=== PATIENT | male | born 1980 | race Caucasian/White ===

== ENCOUNTER 2020-05-22 18:11 | Inpatient (IN) ==
[2020-05-22] MEDS ORDERED: LORazepam 1 MG/2 ML VIAL IV STA (18:59)
[2020-05-22 19:35] LABS: Basophils # (auto) 0.01 K/uL (0-0.2); Basophils % (auto) 0.1 %; Hemoglobin 13.3 g/dL (14.0-18.0); Immature Granulocytes # (auto) 0.01 K/uL (0.00-0.02); Immature Granulocytes % (auto) 0.1 %; Lymphocytes # (auto) 1.17 K/uL (1.2-3.4); Lymphocytes % (auto) 11.9 %; Mean Corpuscular Hemoglobin 30.9 pg (25-34); Mean Corpuscular Volume 88.4 fL (80-100); Mean Platelet Volume 9.4 fL (7.4-10.4); Monocytes # (auto) 0.83 K/uL (0.11-0.59); Monocytes % (auto) 8.4 %; Neutrophils # (auto) 7.83 K/uL (1.4-6.5); Neutrophils % (auto) 79.5 %; Platelet Count 255 K/uL (130-400); RDW Coefficient of Variation 12.5 % (11.5-14.5); RDW Standard Deviation 39.9 fL (36.4-46.3); White Blood Count 9.85 K/uL (4.8-10.8)
--- NOTE | 2020-05-22 19:40 | Emergency Department Note ---
History of Present Illness General Chief complaint: Altered Mental Status Stated complaint: AMS Time Seen by Provider: 05/22/20 18:41 Source: EMS and police ([employer]rections officers) Mode of arrival: EMS Limitations: altered mental status History of Present Illness Provider complaint: Change in mental status Onset (ago): day(s) Location: head Pain Consistency: + constant Associated symptoms: no fever/chills and no nausea/vomiting This is a 40-year-old male brought in from [facility] for altered mental status for the past 2 days. The patient has a history of bipolar disorder and schizophrenia. He is on olanzapine and sertraline. Over the past 2 days he has been increasingly altered. He is not making sense and not conversant. He has f light of ideas and pressured speech. He is not following commands. There is no known history of trauma. He has had no fevers at the present but EMS noted his temperature was 100.8. History is limited as the patient is altered. Home Medications Home Medications Medication Instructions Recorded Confirmed Type levothyroxine 25 mcg PO DAILY 11/15/19 05/22/20 History olanzapine 5 mg PO HS 11/15/19 05/22/20 History sertraline 100 mg PO DAILY 11/15/19 05/22/20 History diphenhydramine HCl 100 mg PO HS 05/22/20 05/22/20 History sertraline 50 mg PO DAILY 05/22/20 05/22/20 History Allergies Allergy/AdvReac Type Severity Reaction Status Date / Time amoxicillin Allergy Mild Unknown Unverified 05/22/20 19:31 Penicillins Allergy Unknown UNKNOWN Verified 05/22/20 19:31 Past Med/Surg History Medical History Schizophrenia Social History (Updated 05/22/20 @ 19:35 by Gavin Bates MD) Smoking Status: Former smoker Current Living Situation: Other Review of Systems See HPI for pertinent positives & negatives. Unobtainable due to cognitive status Physical Exam Vital Signs Vital Signs - 24 hr 05/22/20 18:20 05/22/20 18:22 05/22/20 18:25 Temperature 37.5 C Temperature Source Oral Pulse Rate 107 H 104 H 104 H Pulse Rate [Apical] Pulse Rate from SpO2 Sensor 106 H 105 H Respiratory Rate 20 20 20 Blood Pressure 123/91 123/91 Blood Pressure Mean 108 101 Pulse Oximetry 96 98 98 Oxygen Delivery Method Room Air Sepsis Recent Fever Within 48 Hours No Sepsis New/Unexplained Change in Mental Status No Sepsis Action Taken by Nursing No Action Required 05/22/20 18:30 05/22/20 19:00 05/22/20 19:30 Temperature Temperature Source Pulse Rate 101 H 100 H 89 Pulse Rate [Apical] Pulse Rate from SpO2 Sensor Respiratory Rate 17 19 16 Blood Pressure Blood Pressure Mean Pulse Oximetry Oxygen Delivery Method Sepsis Recent Fever Within 48 Hours Sepsis New/Unexplained Change in Mental Status Sepsis Action Taken by Nursing 05/22/20 20:00 05/22/20 20:15 05/22/20 20:22 Temperature Temperature Source Pulse Rate 100 H 99 H Pulse Rate [Apical] 90 Pulse Rate from SpO2 Sensor 100 H Respiratory Rate 23 18 20 Blood Pressure 118/75 Blood Pressure Mean 89 Pulse Oximetry 93 97 Oxygen Delivery Method Sepsis Recent Fever Within 48 Hours Sepsis New/Unexplained Change in Mental Status Sepsis Action Taken by Nursing 05/22/20 20:30 05/22/20 21:00 05/22/20 21:30 Temperature Temperature Source Pulse Rate 95 H 84 81 Pulse Rate [Apical] Pulse Rate from SpO2 Sensor 92 H 85 81 Respiratory Rate 17 15 18 Blood Pressure Blood Pressure Mean Pulse Oximetry 96 96 97 Oxygen Delivery Method Sepsis Recent Fever Within 48 Hours Sepsis New/Unexplained Change in Mental Status Sepsis Action Taken by Nursing Constitutional: Vital signs reviewed. Eyes: Pupils are equal round reactive to light. Conjunctiva are injected bilaterally with yellowish discharge in the corners. ENT: Pharynx is clear without erythema or exudate. Mucous membranes are dry. Neck supple without meningeal signs. Respiratory: Clear to auscultation bilaterally. Breath sounds are equal bilater ally. Cardiovascular: Regular rate and rhythm. No rubs or gallops. GI: Soft, nondistended and nontender. Bowel sounds are present. Musculoskeletal: No peripheral edema. No lower extremity tenderness. Integumentary: No cyanosis. or jaundice. Neurological: The patient is awake and alert. Moves all extremities. Hyperreflexic in the knees. Unable to assess upper extremity reflexes. Rigidity in the ankles. Psychiatric: Unable to assess. Pressured speech. Flight of ideas. Course Administered Medications Discontinued Medications Lorazepam (Ativan) 1 mg in 2 mls @ 2 mls/min IV NOW STA Stop: 05/22/20 19:00 Last Admin: 05/22/20 19:47 Dose: 2 mls/min Documented by: [id number] Sodium Chloride (Nss 1000ml) 1,000 mls @ 999 mls/hr IV .Q1H1M ONE Stop: 05/22/20 21:46 Last Admin: 05/22/20 21:05 Dose: 999 mls/hr Documented by: [id number] Critical Care Time Critical Care Time: Yes Total Critical Care Time: 32 I have personally spent approximately 32 minutes of critical care time in the direct management of this patient. This includes bedside care, interpretation of diagnostic studies, and testing, discussion with consultants, patient, and family members, and other required patient management activities. These minutes are in excess of all separately billable procedures. Medical Decision Making Differential Diagnosis Toxidrome, drug overdose, intracranial hemorrhage, brain mass, psychosis, neuroleptic malignant syndrome, serotonin syndrome, metabolic derangement Medical Records Attestation: I reviewed the patient's medical records. I did perform a limited focused review of portions of the patient's old chart on the electronic medical record. The patient has had no recent pertinent visits to this hospital. Home Medications Current Medication List: was personally reviewed by me Laboratory Data Attestation: I reviewed the patient's lab results. Result diagrams: 05/22/20 19:09 05/22/20 19:09 Lab Results 05/22/20 05/22/20 05/22/20 Range/Units 19:09 19:09 19:09 WBC 9.85 (4.8-10.8) K/uL RBC 4.30 L (4.7-6.1) M/uL Hgb 13.3 L (14.0-18.0) g/dL Hct 38.0 L (42-52) % MCV 88.4 (80-100) fL MCH 30.9 (25-34) pg MCHC 35.0 (32-36) g/dL RDW Std Deviation 39.9 (36.4-46.3) fL RDW Coeff of Satish 12.5 (11.5-14.5) % Plt Count 255 (130-400) K/uL MPV 9.4 (7.4-10.4) fL Immature Gran % (Auto) 0.1 % Neut % (Auto) 79.5 % Lymph % (Auto) 11.9 % Rankin % (Auto) 8.4 % Eos % (Auto) 0.0 % Baso % (Auto) 0.1 % Neut # (Auto) 7.83 H (1.4-6.5) K/uL Lymph # (Auto) 1.17 L (1.2-3.4) K/uL Rankin # (Auto) 0.83 H (0.11-0.59) K/uL Eos # (Auto) 0.00 (0-0.5) K/uL Baso # (Auto) 0.01 (0-0.2) K/uL Immature Gran # (Auto) 0.01 (0.00-0.02) K/uL Sodium 126 L (136-145) mmol/L Potassium 4.0 (3.5-5.1) mmol/L Chloride 96 L (98-107) mmol/L Carbon Dioxide 20 L (21-32) mmol/L Anion Gap 10.0 (3-11) BUN 20 H (7-18) mg/dl Creatinine 1.04 (0.6-1.4) mg/dl Est Cr Clr Drug Dosing Not Reportable Est GFR ( Amer) 102.2 Est GFR (Non-Af Amer) 88.1 BUN/Creatinine Ratio 19.0 (10-20) Glucose 87 (70-99) mg/dl POC Glucose (70-99) mg/dl Calcium 10.0 (8.5-10.1) mg/dl Total Bilirubin 0.9 (0.2-1) mg/dl AST 131 H (15-37) U/L ALT 26 (12-78) U/L Alkaline Phosphatase 62 (45-117) U/L Total Creatine Kinase 5206 H (39-308) U/L Total Protein 7.9 (6.4-8.2) gm/dl Albumin 4.3 (3.4-5.0) gm/dl Globulin 3.6 (2.5-4.0) gm/dl Albumin/Globulin Ratio 1.2 (0.9-2) TSH 1.280 (0.300-4.500) uIu/ml Salicylates < 1.7 L (2.8-20) mg/dl Acetaminophen < 2 L (10-30) ug/ml Ethyl Alcohol mg/dL (0-3) mg/dl 05/22/20 05/22/20 Range/Units 19:09 19:15 WBC (4.8-10.8) K/uL RBC (4.7-6.1) M/uL Hgb (14.0-18.0) g/dL Hct (42-52) % MCV (80-100) fL MCH (25-34) pg MCHC (32-36) g/dL RDW Std Deviation (36.4-46.3) fL RDW Coeff of Satish (11.5-14.5) % Plt Count (130-400) K/uL MPV (7.4-10.4) fL Immature Gran % (Auto) % Neut % (Auto) % Lymph % (Auto) % Rankin % (Auto) % Eos % (Auto) % Baso % (Auto) % Neut # (Auto) (1.4-6.5) K/uL Lymph # (Auto) (1.2-3.4) K/uL Rankin # (Auto) (0.11-0.59) K/uL Eos # (Auto) (0-0.5) K/uL Baso # (Auto) (0-0.2) K/uL Immature Gran # (Auto) (0.00-0.02) K/uL Sodium (136-145) mmol/L Potassium (3.5-5.1) mmol/L Chloride (98-107) mmol/L Carbon Dioxide (21-32) mmol/L Anion Gap (3-11) BUN (7-18) mg/dl Creatinine (0.6-1.4) mg/dl Est Cr Clr Drug Dosing Est GFR ( Amer) Est GFR (Non-Af Amer) BUN/Creatinine Ratio (10-20) Glucose (70-99) mg/dl POC Glucose 95 (70-99) mg/dl Calcium (8.5-10.1) mg/dl Total Bilirubin (0.2-1) mg/dl AST (15-37) U/L ALT (12-78) U/L Alkaline Phosphatase (45-117) U/L Total Creatine Kinase (39-308) U/L Total Protein (6.4-8.2) gm/dl Albumin (3.4-5.0) gm/dl Globulin (2.5-4.0) gm/dl Albumin/Globulin Ratio (0.9-2) TSH (0.300-4.500) uIu/ml Salicylates (2.8-20) mg/dl Acetaminophen (10-30) ug/ml Ethyl Alcohol mg/dL < 3.0 (0-3) mg/dl Imaging Data Radiologist's Impression: CT head/brain wo con CLINICAL HISTORY: Acute change in mental status COMPARISON STUDY: No previous studies for comparison. TECHNIQUE: Axial CT of the brain is performed from the vertex to the skull base. IV contrast was not administered for this examination. A dose lowering technique was utilized adhering to the principles of ALARA. CT DOSE: 537.48 mGy.cm FINDINGS: No intra or extra-axial mass lesions are visualized. There is no CT evidence of acute cortical infarction. There is no evidence of midline shift. There is no acute hemorrhage. No calvarial fractures are visualized. There is no evidence of pathologic ventricular dilatation. There is no evidence of acute sinusitis IMPRESSION: No acute intracranial findings ACT 112: Negative or not required by law. Electronically signed by: Joseph Bailey M.D. 05/22/2020 8:22 PM XR chest 1V portable CLINICAL HISTORY: Acute change in mental status. Possible pneumonia. COMPARISON STUDY: 03/13/2015 FINDINGS: The cardiac and mediastinal contours are normal. There is no evidence of focal pulmonary consolidation. There is no evidence of failure. No pleural ef fusions are visualized.[ IMPRESSION: No active disease in the chest. ACT 112: Negative or not required by law. Electronically signed by: Joseph Bailey M.D. 05/22/2020 8:06 PM Dictated: 05/22/202004 Transcribed: 05/22/202004 ECG Data Attestation: I personally reviewed and interpreted this ECG as follows: Indication: + altered mental status Rate (beats per minute): 100 Rhythm: + normal sinus ECG Intervals/blocks: + Normal QRS (QRS duration is 102 ms) and + Normal QT ECG ST segments: no ST elevation ECG Findings: no PVCs Blood Pressure Blood Pressure Findings: Elevated blood pressure Blood Pressure Disposition: further management by hospitalist FLORA Narrative I did evaluate the patient as noted above. I did obtain history from the nurse as well as the correctional officers with the patient. On my exam he is quite altered with flight of ideas and pressured speech. He became hypersexual after seeing female nurses. He does have a history of schizophrenia and bipolar disorder and his altered mental status has occurred over 2 days. He was noted to have a temperature of 100.8 by EMS. The nurse checked his temperature here was 37.5. He has no meningeal signs. I was concerned about the possibility of serotonin syndrome. He does have some hyperreflexia and muscular rigidity but no clonus. He had a questionable Babinski sign but may have just been withdrawing his foot. IV access was established. I did treat him with Ativan [address] I did place an order for continuous cardiac monitoring. The monitor showed normal sinus rhythm at a rate of 99. I did order and personally review the patient's 12-lead EKG as described above. There is no widening of the QRS or evidence of anticholinergic syndrome. I did order and personally reviewed the images of the patient's chest x-ray as described above. There is no evidence of pneumonia. I did order and review the patient's blood work as noted in the electronic medical record. His white blood cell count is not elevated. He is slightly anemic. Electrolytes show hyponatremia with a sodium of 126. He has had mild hyponatremia in the past. His CO2 level is 20. He has a normal creatinine. His CPK is elevated over 5000. I did give him a liter normal saline. I did order a CT of the head. I did review the images myself as well as the radiology report as described above. There is no acute intracranial abnormality. I did go to reassess the patient. He is now sleeping. He is no longer tachycardic. His blood pressure is 123/91. He will be hospitalized for further care and evaluation. I did discuss case with Dr. Hendricks and the case m evangelina. Impression & Plan Altered mental status, Hyponatremia, Elevated CK Discharge Plan Visit Data Chief Complaint: Altered Mental Status Stated Complaint: [facility] ED Provider: Gavin Bates Discharge Problem: Altered mental status, Hyponatremia, Elevated CK Forms Stand Alone Forms: My [facility] Prescriptions Prescriptions: No Action sertraline 100 mg Tablet 100 mg PO DAILY RF: 0 olanzapine 5 mg Tablet 5 mg PO HS RF: 0 levothyroxine 25 mcg Tablet 25 mcg PO DAILY RF: 0 diphenhydramine HCl 50 mg Capsule 100 mg PO HS RF: 0 sertraline 50 mg Tablet 50 mg PO DAILY RF: 0 Referrals Referrals: Jasmyne FREEMAN [Primary Care Provider] - Discharge Problem: Altered mental status Qualifiers: Altered mental status type: delirium Qualified Code(s): R41.0 - Disorientation, unspecified
[2020-05-22 20:02] LABS: Alanine Aminotransferase 26 U/L (12-78); Albumin Level 4.3 gm/dl (3.4-5.0); Aspartate Aminotransferase 131 U/L (15-37); Blood Urea Nitrogen 20 mg/dl (7-18); Carbon Dioxide 20 mmol/L (21-32); Chloride 96 mmol/L (98-107); Est GFR (African American) 102.2; Est GFR (Non-African American) 88.1; Glucose 87 mg/dl (70-99); Sodium 126 mmol/L (136-145)
[2020-05-22 20:06] LABS: Acetaminophen < 2 ug/ml (10-30); Salicylate < 1.7 mg/dl (2.8-20)
--- NOTE | 2020-05-22 20:07 | XRay Report ---
XR chest 1V portable CLINICAL HISTORY: Acute change in mental status. Possible pneumonia. COMPARISON STUDY: 03/13/2015 FINDINGS: The cardiac and mediastinal contours are normal. There is no evidence of focal pulmonary co nsolidation. There is no evidence of failure. No pleural effusions are visualized.[ IMPRESSION: No active disease in the chest. ACT 112: Negative or not required by law. Electronically signed by: Joseph Bailey M.D. 05/22/2020 8:06 PM
[2020-05-22 20:17] LABS: Albumin Globulin Ratio 1.2 (0.9-2); Alkaline Phosphatase 62 U/L (45-117); Bilirubin,Total 0.9 mg/dl (0.2-1); Creatine Kinase 5206 U/L (39-308); Globulin 3.6 gm/dl (2.5-4.0); Total Protein 7.9 gm/dl (6.4-8.2)
--- NOTE | 2020-05-22 20:24 | CT Scan Report ---
CT head/brain wo con CLINICAL HISTORY: Acute change in mental status COMPARISON STUDY: No previous studies for comparison. TECHNIQUE: Axial CT of the brain is performed from the vertex to the skull base. IV contrast was not administered for this examination. A dose lowering technique was utilized adhering to the principles of ALARA. CT DOSE: 537.48 mGy.cm FINDINGS: No intra or extra-axial mass lesions are visualized. There is no CT evidence of acute cortical infarc tion. There is no evidence of midline shift. There is no acute hemorrhage. No calvarial fractures ar e visualized. There is no evidence of pathologic ventricular dilatation. There is no evidence of acute sinusitis IMPRESSION: No acute intracranial findings ACT 112: Negative or not required by law. Electronically signed by: Joseph Bailey M.D. 05/22/2020 8:22 PM
[2020-05-22] MEDS ORDERED: SODIUM CHLORIDE 0.9% 1000ML 1,000 ML IV ONE (20:46)
--- NOTE | 2020-05-22 21:34 | History & Physical Report ---
Date of Service May 22, 2020 Assessment & Plan (1) Altered mental status: 40yo C male with history of Schizophrenia, bipolar disorder presenting with 2 days of AMS, reported incoherence, pressured speech. Elevated temperature recorded by EMS en route to [facility] to 100.8. ER attending reported hyperreflexia. Some concern for serotonin syndrome. No new medications, hyponatremia with Fu=358, CT head unremarkable. TSH WNL. At present, patient is somnolent after receiving Ativan. He is afebrile. No inducible clonus and reflexes are normal. No reported GI complaints. He is on Sertraline 150mg po daily as well as Olanzapine and Benadryl. -Admit to medical floor with telemetry monitoring -Utox and UA pending -Continue Benadryl 100mg po qHS -Ativan as needed -Will hold Sertraline for now. If patient demonstrates elevated temperature, agitation, clonus will consider treatment with cyproheptidine Present on Admission?: Yes (2) Hyponatremia: Rr=901. Patient with chronic hyponatremia, most recent values of Ij=948 in October 2019. He was given 1L NSS in the ER. No seizure activity. Do not feel strongly that patient's sodium level is contributing to his reported AMS -Continue NSS at 150mL/hr x 2 liters -Monitor Na levels Present on Admission?: Yes (3) Elevated CK: BF=[id number]. Renal function preserved. Patient with history of elevated CK in the past (880 in 11/18). -UA pending -NSS as above -Repeat CK in AM Present on Admission?: Yes (4) Schizophrenia: Chronic -Continue Olanzapine 5mg po qHS Present on Admission?: Yes (5) Bipolar disorder: Chronic. ? if AMS is secondary to sid or hypomania. Difficult to assess at this time as patient is somnolent after Ativan -Patient will require continued Psychiatric followup -Holding Sertraline as above -Continue Olanzapine Present on Admission?: Yes (6) Hypothyroid: Chronic. TSH WNL -Continue Levothyroxine 25mcg po daily F/E/N - NSS at 150mL/hr, monitor electrolytes and Na correction, regular diet as tolerated when mental status improves Ppx - Low risk for DVT Code - Full Dispo - Admit to medical floor with telemetry Present on Admission?: Yes History of Present Illness Chief Complaint: AMS Primary Care Provider: [facility] Patient somnolent at time of my encounter after receiving Ativan. History obtained through chart review, discussion with COs and ER attending. Be Tinoco is a 40yo C male with history of Schizophrenia and bipolar disorder presenting from [facility] with AMS x 2 days. Patient has been incoherent and "manic", flight of ideas and pressured speech and no sleep over the last two days. By report, he had an elevated temperature to 100.8 by EMS. On arrival to the ER he was afebrile, tachycardic at 112bpm, blood pressure stable, no respiratory distress. ER attending noted patient to be hyperreflexive. No recent medication changes. ER Course: Ativan 1mg IV, NSS x 1L Allergies Allergy/AdvReac Type Severity Reaction Status Date / Time amoxicillin Allergy Mild Unknown Unverified 05/22/20 19:31 Penicillins Allergy Unknown UNKNOWN Verified 05/22/20 19:31 Home Medications Home Medications Medication Instructions Recorded Confirmed Type levothyroxine 25 mcg PO DAILY 11/15/19 05/22/20 History olanzapine 5 mg PO HS 11/15/19 05/22/20 History sertraline 100 mg PO DAILY 11/15/19 05/22/20 History diphenhydramine HCl 100 mg PO HS 05/22/20 05/22/20 History sertraline 50 mg PO DAILY 05/22/20 05/22/20 History Past Med/Surg History Medical History (Updated 05/22/20 @ 22:24 by Isaura Hendricks DO) Bipolar disorder Hypothyroid Schizophrenia Social History (Updated 05/22/20 @ 19:35 by Gavin Bates MD) Smoking Status: Former smoker Current Living Situation: Other Review of Systems Review of Systems: Unobtainable due to mental health condition Physical Exam Physical Exam: General: patient somnolent, is not answering questions or following commands at this time, non-toxic in appearance Skin: warm, dry, intact, no rashes or lesions HEENT: NC/AT, crusting of eyelids bilaterally, anicteric sclera, external ear normal to inspection and nontender, nares patent, dry mucus membranes, dentition intact, no oropharyngeal lesions, neck supple, trachea midline, no LAD, no thyromegaly, no JVD Heart: +S1/S2, regular, no m/r/g Lungs: equal air entry bilaterally, no rales/rhonchi/wheezes Abd: +BS, soft, NT/ND, no masses/organomegaly/ascites Ext: warm, 2+ pulses in UE/LE bilaterally, no clubbing/cyanosis or edema Neuro: somnolent, withdraws all extremities from pain, no inducible clonus, normal reflexes on my exam Results & Data Results & Data ([facility]) Vital Signs (Past 12 Hours) Vital Signs Temp Pulse Pulse Resp BP Pulse Ox 05/22/20 20:15 90 18 93 05/22/20 18:25 37.5 C 104 H 20 123/91 98 Laboratory Results Lab Results 05/22/20 05/22/20 05/22/20 Range/Units 19:09 19:09 19:09 WBC 9.85 (4.8-10.8) K/uL RBC 4.30 L (4.7-6.1) M/uL Hgb 13.3 L (14.0-18.0) g/dL Hct 38.0 L (42-52) % MCV 88.4 (80-100) fL MCH 30.9 (25-34) pg MCHC 35.0 (32-36) g/dL RDW Std Deviation 39.9 (36.4-46.3) fL RDW Coeff of Satish 12.5 (11.5-14.5) % Plt Count 255 (130-400) K/uL MPV 9.4 (7.4-10.4) fL Immature Gran % (Auto) 0.1 % Neut % (Auto) 79.5 % Lymph % (Auto) 11.9 % [place] % (Auto) 8.4 % Eos % (Auto) 0.0 % Baso % (Auto) 0.1 % Neut # (Auto) 7.83 H (1.4-6.5) K/uL Lymph # (Auto) 1.17 L (1.2-3.4) K/uL [place] # (Auto) 0.83 H (0.11-0.59) K/uL Eos # (Auto) 0.00 (0-0.5) K/uL Baso # (Auto) 0.01 (0-0.2) K/uL Immature Gran # (Auto) 0.01 (0.00-0.02) K/uL Sodium 126 L (136-145) mmol/L Potassium 4.0 (3.5-5.1) mmol/L Chloride 96 L (98-107) mmol/L Carbon Dioxide 20 L (21-32) mmol/L Anion Gap 10.0 (3-11) BUN 20 H (7-18) mg/dl Creatinine 1.04 (0.6-1.4) mg/dl Est Cr Clr Drug Dosing Not Reportable Est GFR ( Amer) 102.2 Est GFR (Non-Af Amer) 88.1 BUN/Creatinine Ratio 19.0 (10-20) Glucose 87 (70-99) mg/dl POC Glucose (70-99) mg/dl Calcium 10.0 (8.5-10.1) mg/dl Total Bilirubin 0.9 (0.2-1) mg/dl AST 131 H (15-37) U/L ALT 26 (12-78) U/L Alkaline Phosphatase 62 (45-117) U/L Total Creatine Kinase 5206 H (39-308) U/L Total Protein 7.9 (6.4-8.2) gm/dl Albumin 4.3 (3.4-5.0) gm/dl Globulin 3.6 (2.5-4.0) gm/dl Albumin/Globulin Ratio 1.2 (0.9-2) TSH 1.280 (0.300-4.500) uIu/ml Salicylates < 1.7 L (2.8-20) mg/dl Acetaminophen < 2 L (10-30) ug/ml Ethyl Alcohol mg/dL (0-3) mg/dl 05/22/20 05/22/20 Range/Units 19:09 19:15 WBC (4.8-10.8) K/uL RBC (4.7-6.1) M/uL Hgb (14.0-18.0) g/dL Hct (42-52) % MCV (80-100) fL MCH (25-34) pg MCHC (32-36) g/dL RDW Std Deviation (36.4-46.3) fL RDW Coeff of Satish (11.5-14.5) % Plt Count (130-400) K/uL MPV (7.4-10.4) fL Immature Gran % (Auto) % Neut % (Auto) % Lymph % (Auto) % [place] % (Auto) % Eos % (Auto) % Baso % (Auto) % Neut # (Auto) (1.4-6.5) K/uL Lymph # (Auto) (1.2-3.4) K/uL [place] # (Auto) (0.11-0.59) K/uL Eos # (Auto) (0-0.5) K/uL Baso # (Auto) (0-0.2) K/uL Immature Gran # (Auto) (0.00-0.02) K/uL Sodium (136-145) mmol/L Potassium (3.5-5.1) mmol/L Chloride (98-107) mmol/L Carbon Dioxide (21-32) mmol/L Anion Gap (3-11) BUN (7-18) mg/dl Creatinine (0.6-1.4) mg/dl Est Cr Clr Drug Dosing Est GFR ( Amer) Est GFR (Non-Af Amer) BUN/Creatinine Ratio (10-20) Glucose (70-99) mg/dl POC Glucose 95 (70-99) mg/dl Calcium (8.5-10.1) mg/dl Total Bilirubin (0.2-1) mg/dl AST (15-37) U/L ALT (12-78) U/L Alkaline Phosphatase (45-117) U/L Total Creatine Kinase (39-308) U/L Total Protein (6.4-8.2) gm/dl Albumin (3.4-5.0) gm/dl Globulin (2.5-4.0) gm/dl Albumin/Globulin Ratio (0.9-2) TSH (0.300-4.500) uIu/ml Salicylates (2.8-20) mg/dl Acetaminophen (10-30) ug/ml Ethyl Alcohol mg/dL < 3.0 (0-3) mg/dl Diagnostic Findings CT head/brain wo con CLINICAL HISTORY: Acute change in mental status COMPARISON STUDY: No previous studies for comparison. TECHNIQUE: Axial CT of the brain is performed from the vertex to the skull base. IV contrast was not administered for this examination. A dose lowering technique was utilized adhering to the principles of ALARA. CT DOSE: 537.48 mGy.cm FINDINGS: No intra or extra-axial mass lesions are visualized. There is no CT evidence of acute cortical infarction. There is no evidence of midline shift. There is no acute hemorrhage. No calvarial fractures are visualized. There is no evidence of pathologic ventricular dilatation. There is no evidence of acute sinusitis IMPRESSION: No acute intracranial findings ACT 112: Negative or not required by law. Electronically signed by: Joseph Bailey M.D. 05/22/2020 8:22 PM Dictated: 05/22/202020 Transcribed: 05/22/202020 XR chest 1V portable CLINICAL HISTORY: Acute change in mental status. Possible pneumonia. COMPARISON STUDY: 03/13/2015 FINDINGS: The cardiac and mediastinal contours are normal. There is no evidence of focal pulmonary consolidation. There is no evidence of failure. No pleural effusions are visualized.[ IMPRESSION: No active disease in the chest. ACT 112: Negative or not required by law. Electronically signed by: Joseph Bailey M.D. 05/22/2020 8:06 PM Dictated: 05/22/202004 Transcribed: 05/22/202004 ECG Additional Comments: EKG wtih NSR at 100bpm, normal axis, RE=535, YVL=580, PTg=704, no acute ischemic changes Code Status & VTE Plan Code Status Full PG Care Time/CCT Total # of Minutes Spent Total Time Spent with Patient: Total time spent is greater than 50% in coordination of care (as documented) at patient's floor/unit and/or counseling patient: Coding Level of Care Code 69394 Initial Inpt Care Lvl 3 Diagnoses Altered mental status R41.0 Altered mental status type: delirium Hyponatremia E87.1 Elevated CK R74.8 Schizophrenia F20.9 Schizophrenia type: unspecified Bipolar disorder F31.9 Active/Remission status: remission status unspecified Hypothyroid E03.9 Hypothyroidism type: unspecified (1) Altered mental status Altered mental status type: delirium Qualified Code(s): R41.0 - Disorientation, unspecified (2) Schizophrenia Schizophrenia type: unspecified Qualified Code(s): F20.9 - Schizophrenia, unspecified (3) Bipolar disorder Active/Remission status: remission status unspecified Qualified Code(s): F31.9 - Bipolar disorder, unspecified (4) Hypothyroid Hypothyroidism type: unspecified Qualified Code(s): E03.9 - Hypothyroidism, unspecified
[2020-05-22] MEDS ORDERED: ACETAMINOPHEN 325 MG TAB PO PRN (22:54)
[2020-05-22] MEDS: SODIUM CHLORIDE 0.9% 1000ML 1,000 ML IV SCH (23:01)
[2020-05-22 23:14] LABS: Magnesium 2.3 mg/dl (1.8-2.4); Phosphorus 3.1 mg/dl (2.5-4.9)
[2020-05-23] MEDS: SODIUM CHLORIDE 0.9% 1000ML 1,000 ML IV SCH ×2 (05:52→17:26)
[2020-05-23] MEDS: LEVOTHYROXINE SODIUM 25 MCG TABLET PO SCH (07:15)
[2020-05-23 07:49] LABS: Basophils # (auto) 0.01 K/uL (0-0.2); Basophils % (auto) 0.2 %; Eosinophils # (auto) 0.01 K/uL (0-0.5); Eosinophils % (auto) 0.2 %; Hematocrit (blood only) 34.5 % (42-52); Hemoglobin 11.7 g/dL (14.0-18.0); Lymphocytes # (auto) 0.75 K/uL (1.2-3.4); Lymphocytes % (auto) 13.2 %; Mean Corpuscular Hgb Conc 33.9 g/dL (32-36); Mean Corpuscular Volume 91.3 fL (80-100); Mean Platelet Volume 9.7 fL (7.4-10.4); Monocytes # (auto) 0.53 K/uL (0.11-0.59); Monocytes % (auto) 9.3 %; Neutrophils # (auto) 4.39 K/uL (1.4-6.5); Neutrophils % (auto) 77.1 %; Platelet Count 236 K/uL (130-400); RDW Coefficient of Variation 12.6 % (11.5-14.5); RDW Standard Deviation 42.2 fL (36.4-46.3); Red Blood Count 3.78 M/uL (4.7-6.1); White Blood Count 5.69 K/uL (4.8-10.8)
[2020-05-23 08:23] LABS: Albumin Level 3.6 gm/dl (3.4-5.0); BUN Creatinine Ratio 15.4 (10-20); Bilirubin Direct 0.2 mg/dl (0-0.2); Calcium 8.7 mg/dl (8.5-10.1); Est GFR (African American) 137.4; Est GFR (Non-African American) 118.5; Potassium 3.9 mmol/L (3.5-5.1)
[2020-05-23 08:30] LABS: Bilirubin,Total 0.8 mg/dl (0.2-1); Total Protein 6.6 gm/dl (6.4-8.2)
--- NOTE | 2020-05-23 08:38 | Electrocardiogram Report ---
Test Reason : Blood Pressure : / mmHG Vent. Rate : 100 BPM Atrial Rate : 100 BPM P-R Int : 154 ms QRS Dur : 102 ms QT Int : 334 ms P-R-T Axes : 062 075 065 degrees QTc Int : 430 ms Poor data quality, interpretation may be adversely affected Normal sinus rhythm Peaked T waves(consider ischemia,hyperkalemia,etc.) Borderline ECG No previous ECGs available Confirmed by Nazario Ramirez ([id number]) on 05/23/2020 8:38:41 AM Referred By: [facility] Confirmed By:Nazario Ramirez
--- NOTE | 2020-05-23 09:08 | Electrocardiogram Report ---
Test Reason : Blood Pressure : / mmHG Vent. Rate : 087 BPM Atrial Rate : 087 BPM P-R Int : 158 ms QRS Dur : 108 ms QT Int : 388 ms P-R-T Axes : 056 048 049 degrees QTc Int : 466 ms Normal sinus rhythm Normal ECG When compared with ECG of 22-MAY-2020 19:45, T waves no longer peaked Otherwise no significant change Confirmed by Nazario Ramirez ([id number]) on 05/23/2020 9:08:06 AM Referred By: [facility] Confirmed By:Nazario Ramirez
[2020-05-23 11:14] LABS: Appearance Urine Clear (Clear); Bilirubin Urine Negative (Negative); Blood Urine Negative (Negative); Color Urine Yellow; Glucose Urine UA Negative (Negative); Ketones Urine 1+ (Negative); Leukocyte Esterase Urine Negative (Negative); Nitrite Urine Negative (Negative); Protein Urine Negative (Negative); Specific Gravity Urine 1.008 (1.000-1.030); Urobilinogen Urine Negative (Negative); pH Urine 5.5 (4.5-7.5)
[2020-05-23 11:32] LABS: Amphetamines+Metham, Urine Neg (Neg); Barbiturates, Urine Neg (Neg); Benzodiazepine, Urine Neg (Neg); Cocaine, Urine Neg (Neg); MDMA (Ecstacy), Urine Neg (Neg); Methadone, Urine Neg (Neg); Opiate, Urine Neg (Neg); Phencyclidine, Urine Neg (Neg)
--- NOTE | 2020-05-23 14:21 | Psychiatric Consultation ---
Date of Consultation May 23, 2020 Impression / Recommendations Impression Dr. Carly Pfeiffer was directly involved in review and discussion of the patient's case and participated in medical decision making regarding treatment recommendations. RECOMMENDATIONS: 05/23 - Psychiatric consultation requested by hospitalist service to evaluate patient for mood and behavioral changes with concern for possible sid versus serotonin syndrome. - Psychiatric records requested from [facility] and summarized above. Pt has a diagnosis of unspecified depressive disorder and insomnia. It is noted that patient has rather significant behavioral issues and malingering traits as evidenced by manipulative behavior in the jail setting. It is uncertain if patient had access to excessive amounts of medications and potential for overdose is unknown. - Patient is reporting he has not been taking olanzapine or sertraline, but is unable to provide a timeline for this refusal. In the absence of consistent use of these medications, or other concerning physical symptoms, it is unlikely that his current presentation is related to a serotonin toxicity. - Patient's behavior is certainly argumentative and uncooperative. Affect is expansive, though it is uncertain if this is baseline behavior. Would suggest continuing home dose of olanzapine 5mg qHS, and offering 5mg prn for agitation or evidence of psychosis. Agree with holding scheduled sertraline, as this can contribute to expansive affect, worsening psychosis, or sid. Will continue to monitor mood/behavior and attempt to gather collateral information regarding patient's presentation. Although further observation is necessary, we also cannot entirely rule out the possibility that patient's behavior is related to malingering or attempts to manipulate individuals with a particular goal. - In order to reduce manipulative behavior and attempt to further encourage acting out, would encourage implementing restrictions in the hospital setting that are consistent with current jail restrictions. Possible restrictions/limitations may include: limiting television, limiting double- portion or drink options, limiting engagement with CO's and hospital staff, etc. - Will continue attempts to gather information. Please reach out to our service with any additional questions or concerns. (1) Altered mental status: Altered mental status type: delirium Qualified Code(s): R41.0 - Disorientation, unspecified (2) Depression: (3) Insomnia: Psych History Identifying Data 40-year-old male inmate from [facility] admitted medically on 05/22/2020 after presenting to the ED from the jail with reports of AMS for 2 days. Psychiatric consultation was requested to evaluate patient due to concern for sid versus serotonin syndrome. Chief Complaint "Who's that? I don't even know her, never met her before." History of Present Illness Be Tinoco is a 40-year-old male inmate at [facility] who presented to the E D with AMS. H&P suggests patient presented at incoherent and "manic" with "flight of ideas and pressured speech and no sleep over the last two days." Psychiatric consultation was requested to evaluate patient for "sid" with concern for possibility of serotonin syndrome. Recent psychiatric records were requested from [facility] in order to get a better understanding of patient's history. Pt is rather uncooperative with assessment. He speaks loudly and is argumentative and irritable for most of the conversation. He is initially preoccupied with "you don't have the 8 years. 8 years of medical school or 8 years of psychology." Pt was reminded that this provider is a PA and role of consultation was shared. According to the patient, he is here because "my ankles and wrist are broken, but no medical provider at your inappropriate hospital cares. They're all off procreating. Pt denies that he has been confused and repeated states "misdiagnosis, misdiagnosis" when asked about the presence of hallucinations. Pt adamantly denies auditory and visual hallucinations, but then states that he sees God and "I believe he has already shot me with a gamma ray." Pt is unwilling to appropriately discuss his psychiatric history. He states he has not been taking sertraline or olanzapine due to "misdiagnosis" and "it affects my liver, I'm only taking medically necessary medicines like Synthroid." Pt refuses to disclose how long he has been refusing these medications and only ignores this provider. At one point, patient was observed to be attempting to hit himself in the face and bite his tongue. He continued to be uncooperative with evaluation. Recommendations outlined in this note were shared with the patient, who continues to state he will not take medications. Past Psychiatric History Previous Psych History: Records from [facility] Reviewed and Summarized: Diagnosis: - Unspecified depressive disorder and insomnia disorder Medications: - Olanzapine 5mg qHS - Sertraline 150mg qAM - Benadryl 100mg qHS Pt seen on 05/22/2020 by [facility] due to abnormal behavior and confusion worsening over "the past few days." Pt had reportedly flooded his cell with soap and was saying nonsensical things. Concern for AMS with fever, unknown if substance ingestion. Pt sent to [facility] ED for further evaluation and management. Psychiatry Progress Note - 05/17/2020 - Pt reported consistency with medications. Denied SI, stating "no, that would be pointless now, I only have 4 monhts until I max out, so I will be ok." [place] thinking reported, but patient denied A/V hallucinations, as well as signs/symptoms of sid/hypomania. Appetite and sleep were reportedly good. Psychiatry Progress Note - 04/26/2020 - Patient described as a "frequent flyer to the POC and the dTU to get away from his cell block." Suicidality was reported "because women do not find him attractive". Behavioral disturbances reported as patient was "throwing urine out of his cell." Staff reportedly taking steps to appropriately manage reported concerns without escalating behavior, as it is reported patient acts out to get sent to the psychiatric treatment units. Psychiatry Progress Note - 04/11/2020 - Ongoing insubordination and behavioral issues. Documentation reports "he has in the past seemed to exaggerate psychiatric sxs for the purpose of getting off the block and coming to the POC or the [facility]U." Pt denied depression or other concerns. Current Psychiatric Diagnosis: Unspecified depressive disorder; insomnia Outpatient Services: Told liaison he has had [facility] in the past, report not verified. Past Medication Trials: ED presentation in 2014 with home medications of paroxetine and fluphenazine. [place] also documented. Allergies Allergy/AdvReac Type Severity Reaction Status Date / Time amoxicillin Allergy Mild Unknown Unverified 05/22/20 19:31 Penicillins Allergy Unknown UNKNOWN Verified 05/22/20 19:31 Home Medications Home Medications Medication Instructions Recorded Confirmed Type levothyroxine 25 mcg PO DAILY 11/15/19 05/22/20 History olanzapine 5 mg PO HS 11/15/19 05/22/20 History sertraline 100 mg PO DAILY 11/15/19 05/22/20 History diphenhydramine HCl 100 mg PO HS 05/22/20 05/22/20 History sertraline 50 mg PO DAILY 05/22/20 05/22/20 History Personal History Living Arrangements: [facility] History of Legal Problems: Current inmate at [facility] Patient History Medical History Bipolar disorder Hypothyroid Schizophrenia Social History Smoking Status: Former smoker Preferred Language: Bengali Current Living Situation: Other Current Living Situation Comment: [facility] Physical Exam Psychiatric: Orientation: alert and oriented x 3; + uncooperative (argumentative, agitated, frequently interrupting) Apperance: appropriately dressed, appropriately groomed and appeared stated age Overweight-appearing male, restrained to bed but appearing restless. Pt is appropriately dressed for setting, wearing hospital gown. Appropriate grooming and hygiene. Eyes appear bloodshot. Eye Contact: + fair eye contact Motor Behavior: + psychomotor agitation (appearing restless, fidgeting, frequently pulling at restraints) Speech: + pressured speech (rapid, and at times nonsensical ) and + loud speech Affect: + labile affect and + irritable affect expansive affect Mood: + depressed mood (mockingly - "I'm depressed...I'm anxious...I'm whatever they say I am.") Thought Process: + tangential thought process; + thought process not clear or coherent and + thought association not intact Thought Content: + preoccupation and + paranoid (though patient denies) Hallucinations: no auditory hallucinations and no visual hallucinations Cognition: language grossly intact; + attention not intact Insight: + poor insight Judgement: + poor judgement Vital Signs (Past 24 Hours): Last Vital Signs Temp 36.8 C 05/23/20 12:00 Pulse 89 05/23/20 12:00 Resp 18 05/23/20 12:00 BP 123/67 05/23/20 12:00 Pulse Ox 96 05/23/20 12:00 Review of Systems Rather uncooperative with interview, but did verbalize the following complaints: Musculoskeletal: reports pain in ankles bilaterally and right wrist Results & Data (PSY) Medications Administered Levothyroxine Sodium (Levothyroxine Sodium 25 Mcg Tablet) 25 mcg PO DAILYBB PREET Stop: 06/22/20 06:29 Last Admin: 05/23/20 07:15 Dose: 25 mcg Documented by: [id number] Coding Level of Care Code 90139 U Intl Hosp Care Lvl 2 Diagnoses Altered mental status R41.0 Altered mental status type: delirium Depression F32.9 Insomnia G47.00
[2020-05-23] MEDS ORDERED: OLANZapine 5 MG TABLET PO PRN (15:35)
[2020-05-23] MEDS ORDERED: HALOPERIDOL LACTATE 5 MG/ML 1 ML VIAL IM PRN (15:36)
--- NOTE | 2020-05-23 17:01 | Hospitalist Progress Note ---
Date of Service May 23, 2020 Assessment & Plan (1) Altered mental status: 40yo C male prisoner with history of bipolar disorder with psychosis presenting with 2-3 days of AMS, reported incoherence, pressured speech. Elevated temperature recorded by EMS en route to [facility] to 100.8. ER attending reported hyperreflexia. Some concern for serotonin syndrome initially No new medications, hyponatremia with Cb=877, CT head unremarkable. TSH WNL. He is on Sertraline 150mg po daily as well as Olanzapine and Benadryl at the residential Alf physician tells me historically this pt typically gets withdrawn and depressed mood, however this is the first time he's ever been agitated and manic UDS, EtOH, ASA, APAP all normal With hyponatremia could be contributing however Na+ now improved and continues to have similar behavioral issues as described prior to admission Low grade temps could be from finger infection as below Also with some rhabdomyolysis here-unclear if intentional or from severe psychomotor agitation prior to admission Seems most consistent with a manic episode--> appreciate Psych consultation -holding sertraline in case of serotonin syndrome although not likely -Continue Benadryl 100mg po qHS -Ativan as needed -continue Olanzapine 5mg po hs and Psych added prn Olanzapine as well as IM Haldol prn -treating finger infection as below -continue IVFs for hyponatemia (2) Hyponatremia: Zt=184. Patient with chronic hyponatremia, most recent values of Nv=862 in October 2019. He was given 1L NSS in the ER. No seizure activity. Do not feel strongly that patient's sodium level is contributing to his reported AMS Na+ improved today to 135 after receiving IVFs through the night -Continue NSS at 150mL/hr for rhabdo -Monitor Na levels in AM (3) Bipolar disorder: Chronic. ? if AMS is secondary to sid or hypomania. Psych consult appreciated -Patient will require continued Psychiatric followup at residential -Holding Sertraline as above -Continue Olanzapine (4) Finger infection: Right middle finger with open wound, erythema, edema of entire finger -unclear how occurred but wound seems at least 1-2 days old Xrays neg for OM -start clindamycin for cellulitis as is allergic to PCN follow -keep elevated wound care for open wound consulted (5) Rhabdomyolysis: HG=[id number]. Renal function preserved. Patient with history of elevated CK in the past (880 in 2/20). CK now trending downward to 3000s with IVFs COuld be from psychomotor agitation vs exercise -UA neg -continue NSS as above -Repeat CK in AM (6) Hypothyroid: Chronic. TSH WNL -Continue Levothyroxine 25mcg po daily (7) Ankle pain, right: no injury, difficult to say if real or not, no abnormal findings on exam or by history checked xray which was negative (8) Wrist pain, right: With mild edema on exam, could be from IV site and also he is constantly pulling his wrists against the handcuffs on that side Xray negative continue APAP prn (9) DVT prophylaxis: Low risk but if stays another night, would add on heparin SQ Dispo-can downgrade to med/surg from tele Admission and Anticipated Discharge Date Admission Date: May 22, 2020 Subjective Pt tangential and speaking very rapidly about multiple things including right ankle pain, right wrist pain, right middle finger wound with pain and swelling of finger. Speaks several times about the "whop down there" while pointing to his lower abdomen and something about the wires and the electromagnetic forces. States he thinks someone came into his cell at the residential and "stomped on my ankle." He asks if the heart monitor will tell him when he's about to ? Tele with NSR rates 80s-90s. Review of Systems Review of Systems: All systems reviewed & are unremarkable except as noted in HPI & below Physical Exam Constitutional: well developed, + behavioral limitations, + disheveled and cooperative; no acute distress Eyes: + anicteric sclerae scant crust on lids and lashes, mild conjunctival injection bilat Neck: trachea midline, no thyromegaly Respiratory: normal respiratory effort, lungs clear to auscultation Cardiovascular: RRR, no murmur, no edema Chest (Breasts): Chest: normal inspection of chest Gastrointestinal (Abdomen): normal bowel sounds, soft, nontender, no hepatosplenomegaly Musculoskeletal: Extremities: no cyanosis and no clubbing Bilat ankles FROM, no TTP, no effusion or ecchymosis Right wrist with + swelling soft tissues, FROM Right middle finger with volar surface 2 x 0.5cm open wound with scab and scant serous drainage with surrounding erythema of entire finger and edema, limited ROM PIP joint, +TTP Skin: no rashes, warm and dry Neurologic: moves all extremities and awake; no focal motor deficits Psychiatric: Orientation: alert and oriented x 3 Eye Contact: good eye contact Motor Behavior: + psychomotor agitation and + akathisia Speech: + pressured speech and + loud speech Affect: + elated affect Thought Process: + tangential thought process Lymphatic: no lymphedema Results & Data Results & Data ([facility]) Vital Signs (Past 12 Hours) Vital Signs Temp Pulse Resp BP Pulse Ox 05/23/20 15:00 37.2 C 89 18 124/71 97 05/23/20 12:00 36.8 C 89 18 123/67 96 05/23/20 07:00 36.8 C 88 18 99/64 L 99 Laboratory Results 05/23/20 05/23/20 05/23/20 Range/Units Unknown 10:50 10:50 WBC (4.8-10.8) K/uL RBC (4.7-6.1) M/uL Hgb (14.0-18.0) g/dL Hct (42-52) % MCV (80-100) fL MCH (25-34) pg MCHC (32-36) g/dL RDW Std Deviation (36.4-46.3) fL RDW Coeff of Satish (11.5-14.5) % Plt Count (130-400) K/uL MPV (7.4-10.4) fL Immature Gran % (Auto) % Neut % (Auto) % Lymph % (Auto) % Bland % (Auto) % Eos % (Auto) % Baso % (Auto) % Neut # (Auto) (1.4-6.5) K/uL Lymph # (Auto) (1.2-3.4) K/uL Bland # (Auto) (0.11-0.59) K/uL Eos # (Auto) (0-0.5) K/uL Baso # (Auto) (0-0.2) K/uL Immature Gran # (Auto) (0.00-0.02) K/uL Sodium (136-145) mmol/L Potassium (3.5-5.1) mmol/L Chloride (98-107) mmol/L Carbon Dioxide (21-32) mmol/L Anion Gap (3-11) BUN (7-18) mg/dl Creatinine (0.6-1.4) mg/dl Est Cr Clr Drug Dosing ml/min Est GFR ( Amer) Est GFR (Non-Af Amer) BUN/Creatinine Ratio (10-20) Glucose (70-99) mg/dl Calcium (8.5-10.1) mg/dl Total Bilirubin (0.2-1) mg/dl Direct Bilirubin (0-0.2) mg/dl AST (15-37) U/L ALT (12-78) U/L Alkaline Phosphatase (45-117) U/L Total Creatine Kinase (39-308) U/L Total Protein (6.4-8.2) gm/dl Albumin (3.4-5.0) gm/dl Urine Color Yellow Urine Appearance Clear (Clear) Urine pH 5.5 (4.5-7.5) Ur Specific [place] 1.008 (1.000-1.030) Urine Protein Negative (Negative) Urine Glucose (UA) Negative (Negative) Urine Ketones 1+ H (Negative) Urine Blood Negative (Negative) Urine Nitrite Negative (Negative) Urine Bilirubin Negative (Negative) Urine Urobilinogen Negative (Negative) Ur Leukocyte Esterase Negative (Negative) Nasal Screen MRSA (PCR) Negative (Negative) Urine Opiates Screen Neg (Neg) Ur Methadone, Qual Neg (Neg) Urine Barbiturates Neg (Neg) Ur Phencyclidine (PCP) Neg (Neg) U Amphetamin/Meth Scrn Neg (Neg) MDMA (Ecstasy) Screen Neg (Neg) U Benzodiazepines Scrn Neg (Neg) Ur Cocaine Metabolite Neg (Neg) U Marijuana (THC) Screen Neg (Neg) 05/23/20 05/23/20 Range/Units 07:02 07:02 WBC 5.69 (4.8-10.8) K/uL RBC 3.78 L (4.7-6.1) M/uL Hgb 11.7 L (14.0-18.0) g/dL Hct 34.5 L (42-52) % MCV 91.3 (80-100) fL MCH 31.0 (25-34) pg MCHC 33.9 (32-36) g/dL RDW Std Deviation 42.2 (36.4-46.3) fL RDW Coeff of Satish 12.6 (11.5-14.5) % Plt Count 236 (130-400) K/uL MPV 9.7 (7.4-10.4) fL Immature Gran % (Auto) 0.0 % Neut % (Auto) 77.1 % Lymph % (Auto) 13.2 % Bland % (Auto) 9.3 % Eos % (Auto) 0.2 % Baso % (Auto) 0.2 % Neut # (Auto) 4.39 (1.4-6.5) K/uL Lymph # (Auto) 0.75 L (1.2-3.4) K/uL Bland # (Auto) 0.53 (0.11-0.59) K/uL Eos # (Auto) 0.01 (0-0.5) K/uL Baso # (Auto) 0.01 (0-0.2) K/uL Immature Gran # (Auto) 0.00 (0.00-0.02) K/uL Sodium 135 L D (136-145) mmol/L Potassium 3.9 (3.5-5.1) mmol/L Chloride 104 (98-107) mmol/L Carbon Dioxide 24 (21-32) mmol/L Anion Gap 7.0 (3-11) BUN 10 D (7-18) mg/dl Creatinine 0.67 D (0.6-1.4) mg/dl Est Cr Clr Drug Dosing 155.0 ml/min Est GFR ( Amer) 137.4 Est GFR (Non-Af Amer) 118.5 BUN/Creatinine Ratio 15.4 (10-20) Glucose 77 (70-99) mg/dl Calcium 8.7 (8.5-10.1) mg/dl Total Bilirubin 0.8 (0.2-1) mg/dl Direct Bilirubin 0.2 (0-0.2) mg/dl AST 105 H (15-37) U/L ALT 22 (12-78) U/L Alkaline Phosphatase 51 (45-117) U/L Total Creatine Kinase 3018 H (39-308) U/L Total Protein 6.6 (6.4-8.2) gm/dl Albumin 3.6 (3.4-5.0) gm/dl Urine Color Urine Appearance (Clear) Urine pH (4.5-7.5) Ur Specific [place] (1.000-1.030) Urine Protein (Negative) Urine Glucose (UA) (Negative) Urine Ketones (Negative) Urine Blood (Negative) Urine Nitrite (Negative) Urine Bilirubin (Negative) Urine Urobilinogen (Negative) Ur Leukocyte Esterase (Negative) Nasal Screen MRSA (PCR) (Negative) Urine Opiates Screen (Neg) Ur Methadone, Qual (Neg) Urine Barbiturates (Neg) Ur Phencyclidine (PCP) (Neg) U Amphetamin/Meth Scrn (Neg) MDMA (Ecstasy) Screen (Neg) U Benzodiazepines Scrn (Neg) Ur Cocaine Metabolite (Neg) U Marijuana (THC) Screen (Neg) ECG Additional Comments: NSR, peaked T waves now resolved PG Care Time/CCT Total # of Minutes Spent Total Time Spent with Patient: Total time spent is greater than 50% in coordination of care (as documented) at patient's floor/unit and/or counseling patient: Coding Level of Care Code 71595 Subseq Hosp Care Lvl 3 Diagnoses Altered mental status R41.0 Altered mental status type: delirium Hyponatremia E87.1 Bipolar disorder F31.9 Active/Remission status: remission status unspecified Finger infection L08.9 Rhabdomyolysis M62.82 Hypothyroid E03.9 Hypothyroidism type: unspecified Ankle pain, right M25.571 Wrist pain, right M25.531 DVT prophylaxis Z29.9 (1) Bipolar disorder Active/Remission status: remission status unspecified Qualified Code(s): F31.9 - Bipolar disorder, unspecified (2) Hypothyroid Hypothyroidism type: unspecified Qualified Code(s): E03.9 - Hypothyroidism, unspecified (3) Altered mental status Altered mental status type: delirium Qualified Code(s): R41.0 - Disorientation, unspecified
[2020-05-23] MEDS: CLINDAMYCIN 600 MG in DEXTROSE 5% 50 ML IV SCH (17:27)
--- NOTE | 2020-05-23 17:42 | XRay Report ---
RIGHT ANKLE 3 VIEWS HISTORY: right ankle pain COMPARISON: None. FINDINGS: There is no fracture or dislocation. Soft tissues are unremarkable. No radiopaque foreign b odies. IMPRESSION: No fractures. ACT 112: Negative or not required by law. Electronically signed by: Bay Nguyen M.D. 05/23/2020 5:41 PM
--- NOTE | 2020-05-23 17:44 | XRay Report ---
XR hand RT min 3V routine, XR wrist RT min 3V routine CLINICAL HISTORY: middle finger swelling,erythema,wound. Right wrist pain. COMPARISON STUDY: None. FINDINGS: Soft tissue swelling within the hand and wrist. No fracture or dislocation. No destructive changes identified. An intravenous line is noted within the dorsum of the hand. Otherwise, no radiopa que foreign bodies. IMPRESSION: Soft tissue swelling within the right hand/wrist. No underlying bony abnormality. ACT 112: Negative or not required by law. Electronically signed by: Bay Nguyen M.D. 05/23/2020 5:43 PM
[2020-05-23] MEDS ORDERED: OLANZapine 5 MG TABLET PO SCH (21:00)
[2020-05-24] MEDS: CLINDAMYCIN 600 MG in DEXTROSE 5% 50 ML IV SCH ×2 (00:02→08:50)
[2020-05-24] MEDS: SODIUM CHLORIDE 0.9% 1000ML 1,000 ML IV SCH ×3 (00:02→13:27)
[2020-05-24] MEDS: LEVOTHYROXINE SODIUM 25 MCG TABLET PO SCH (06:16)
[2020-05-24 07:11] LABS: Hematocrit (blood only) 36.7 % (42-52); Hemoglobin 12.4 g/dL (14.0-18.0); Lymphocytes % (auto) 20.5 %; Mean Corpuscular Hemoglobin 30.8 pg (25-34); Mean Corpuscular Hgb Conc 33.8 g/dL (32-36); Mean Corpuscular Volume 91.1 fL (80-100); Mean Platelet Volume 9.7 fL (7.4-10.4); Monocytes # (auto) 0.27 K/uL (0.11-0.59); Monocytes % (auto) 7.9 %; Neutrophils # (auto) 2.44 K/uL (1.4-6.5); Neutrophils % (auto) 71.6 %; Platelet Count 235 K/uL (130-400); RDW Coefficient of Variation 12.7 % (11.5-14.5); RDW Standard Deviation 42.4 fL (36.4-46.3); Red Blood Count 4.03 M/uL (4.7-6.1); White Blood Count 3.41 K/uL (4.8-10.8)
[2020-05-24 07:55] LABS: BUN Creatinine Ratio 7.8 (10-20); Bilirubin Direct 0.1 mg/dl (0-0.2); Calcium 8.5 mg/dl (8.5-10.1); Creatinine Clr Calc Pharmacy 167.5 ml/min; Est GFR (African American) 141.8; Est GFR (Non-African American) 122.4; Potassium 3.2 mmol/L (3.5-5.1)
[2020-05-24 08:04] LABS: Albumin Level 3.6 gm/dl (3.4-5.0); Bilirubin,Total 0.4 mg/dl (0.2-1)
[2020-05-24] MEDS ORDERED: POTASSIUM CHLORIDE 20 MEQ TABCR PO STA (09:39)
[2020-05-24] MEDS ORDERED: MICONAZOLE NITRATE POWDER 43 GM EXT SCH (10:00)
[2020-05-24] MEDS ORDERED: MUPIROCIN 2% OINT 22 GM TUBE EXT SCH (10:00)
--- NOTE | 2020-05-24 11:18 | Discharge Summary ---
Date of Service May 24, 2020 Admission HPI Per Admitting Provider Patient somnolent at time of my encounter after receiving Ativan. History obtained through chart review, discussion with COs and ER attending. Be Tinoco is a 40yo C male with history of Schizophrenia and bipolar disorder presenting from [facility] with AMS x 2 days. Patient has been incoherent and "manic", flight of ideas and pressured speech and no sleep over the last two days. By report, he had an elevated temperature to 100.8 by EMS. On arrival to the ER he was afebrile, tachycardic at 112bpm, blood pressure stable, no respiratory distress. ER attending noted patient to be hyperreflexive. No recent medication changes. ER Course: Ativan 1mg IV, NSS x 1L Principal Diagnosis Acute psychosis, sid, right middle finger cellulitis, Rhabdomyolysis Discharge Exam Constitutional well developed, + behavioral limitations, + disheveled and cooperative; no acute distress Eyes + anicteric sclerae no further conjunctival injection Neck trachea midline, no thyromegaly Respiratory normal respiratory effort, lungs clear to auscultation Cardiovascular RRR, no murmur, no edema Chest (Breasts) Chest: normal inspection of chest Musculoskeletal Extremities: no cyanosis and no clubbing right wrist less edema today, no erythema, FROM wrist Rt middle finger less edema and less erythema, wound dry scab, able to flex PIP and DIP and MCP joints fully Skin + rash (seborrhea of scalp, around eyes, nose) Neurologic moves all extremities and awake; no focal motor deficits Psychiatric Orientation: alert and oriented x 3 Eye Contact: good eye contact Affect: + elated affect (but improved today) Thought Process: clear/coherent thought process (improved today, not tangential) Lymphatic no lymphedema Discharge Data Allergies Allergy/AdvReac Type Severity Reaction Status Date / Time amoxicillin Allergy Mild Unknown Unverified 05/22/20 19:31 Penicillins Allergy Unknown UNKNOWN Verified 05/22/20 19:31 Consultations 05/23/20 08:49 Consult Psychiatry Routine Ordered Studies 05/22/20 18:59 CT head/brain wo con Stat Xray right wrist and hand Xray right ankle Hospital Course (1) Altered mental status: 40yo C male prisoner with history of bipolar disorder with psychosis presenting with 2-3 days of AMS, reported incoherence, pressured speech. Elevated temperature recorded by EMS en route to [facility] to 100.8. ER attending reported hyperreflexia. Some concern for serotonin syndrome initially No new medications, hyponatremia with Bh=651, CT head unremarkable. TSH WNL. He is on Sertraline 150mg po daily as well as Olanzapine and Benadryl at the shelter [facility] physician tells me historically this pt typically gets withdrawn and depressed mood, however this is the first time he's ever been agitated and manic UDS, EtOH, ASA, APAP all normal With hyponatremia could be contributing however Na+ now improved and continued to have similar behavioral issues as described prior to admission Low grade temps could be from finger infection as below and now resolved Also with some rhabdomyolysis here-unclear if intentional or from severe psychomotor agitation prior to admission Seems most consistent with a manic episode--> appreciate Psych consultation Now much improved after extra Zyprexa and Haldol 10mg IM x 1 on evenin gof 05/23. He slept all night and fels much better. Still mild psychomotor agitation but coherent and conversive, no longer tangential, and apologized for "wasting your time" to me on day of discharge. -holding sertraline in case of serotonin syndrome although not likely -Continue Benadryl 100mg po qHS -continue Olanzapine 5mg po hs and Psych added prn Olanzapine as well as IM Haldol prn -treating finger infection as below -continue IVFs for rhabdo at shelter as below -f/u with Psych at shelter (2) Hyponatremia: To=783. Patient with chronic hyponatremia, most recent values of Yn=641 in October 2019. He was given 1L NSS in the ER. No seizure activity. Do not feel strongly that patient's sodium level is contributing to his reported AMS Na+ improved today to 138 after receiving IVFs x 2 days -Continue NSS atprison x 2 more days for rhabdo -Monitor BMP at shelter in 2 days (3) Bipolar disorder: Chronic. ? if AMS is secondary to sid or hypomania. Psych consult appreciated -Patient will require continued Psychiatric followup at shelter -Holding Sertraline as above -Continue Olanzapine (4) Finger infection: Right middle finger with open wound, erythema, edema of entire finger--> now improved after starting clindamycin -unclear how occurred but wound seems at least 1-2 days old Xrays neg for OM -continue 10 day course of po clindamycin for cellulitis as is allergic to PCN follow -keep elevated wound care for open wound consulted-start bactriban bid, no dressing needed Blood cultures with 1/2 sets with GPC in clusters, likely contaminate--> will f/u after discharge and contact shelter if is something significant (5) Rhabdomyolysis: SM=[id number] on admission, now down to 2300. Renal function preserved. Patient with history of elevated CK in the past (880 in 11/18). CK now trending downward with IVFs COuld be from psychomotor agitation vs exercise -UA neg -continue NSS as above at shelter x 2 more days -Repeat CK and CMP in 2 days AST also elevated secondary to rhabdo at 130 on day of dc (6) Hypothyroid: Chronic. TSH WNL -Continue Levothyroxine 25mcg po daily (7) Ankle pain, right: no injury, difficult to say if real or not, no abnormal findings on exam or by history checked xray which was negative (8) Wrist pain, right: With mild edema on exam, could be from IV site and also he is constantly pulling his wrists against the handcuffs on that side Xray negative continue APAP prn (9) DVT prophylaxis: Low risk Dispo-stable for dc to shelter discussed his care with Dr. Martinez at [facility] prior to discharge and he accepts him back Total Time Total Time Spent Total Time Spent (In Minutes): >30 min Total Time Includes: Examination of the Patient, Discharge Planning, Medication Reconciliation and Communication With Other Providers Discharge Plan Discharge Items Patient Disposition: [facility] Reason For Visit: AMS Discharge Diagnosis: Depression with psychosis,possible sid, Right middle finger cellulitis, Rhabdomyolysis Condition on Discharge: Fair Activity: Resume your previous activity Non-emergency contact: Primary Care Provider and Psychiatrist Call non-emergency contact if: you have any medication questions and your symptoms worsen Follow-up/Referrals: Jasmyne FREEMAN [Primary Care Provider] - Diet: Regular Addtl Attending Provider Instructions: Continue IVFs with normal saline x 2 more days for rhabdomyolysis, follow CMP, CK at shelter in 2 days. Continue clindamycin 600mg po tid x 9 more days for finger infection which appears to be improving. Follow up with Psychiatry for depression with psychosis, suspected sid. Pending Studies at Discharge: Yes Studies:: Blood culture--> 1/2 bottles with gram positive cocci in clusters, likely contaminant, final ID pending Stand-Alone Forms: My [facility] Skilled Items Patient informed of condition?: Yes Discharge Level of Care: Other Communicable Disease: No Discharge Prognosis: Improving Lines: None Urinary Catheter: No Medications and DC Order Prescriptions: New olanzapine 5 mg Tablet 5 mg PO Q4H PRN (Reason: agitation) Qty: 30 RF: 0 Desenex 2 % Powder 1 applic EXT BID Qty: 43 RF: 0 mupirocin 2 % Ointment 1 applic EXT BID Qty: 15 RF: 0 clindamycin HCl 300 mg capsule 600 mg PO TID 9 Days Qty: 54 RF: 0 Continued olanzapine 5 mg Tablet 5 mg PO HS RF: 0 levothyroxine 25 mcg Tablet 25 mcg PO DAILY RF: 0 diphenhydramine HCl 50 mg Capsule 100 mg PO HS RF: 0 Discontinued sertraline 100 mg Tablet 100 mg PO DAILY RF: 0 sertraline 50 mg Tablet 50 mg PO DAILY RF: 0 Discharge Orders: Discharge Order (Routine); Ordered 05/24/20 Ordered By: Francine Paul Admission Data Admit Date/Time: 05/22/20 21:29 Attending Provider: Francine Paul Admit Provider: Isaura Hendricks Primary Care Provider: Jasmyne FREEMAN Other Providers: Carly Pfeiffer Coding Level of Care Code D/C Day Management >30 mins Diagnoses Altered mental status R41.0 Altered mental status type: delirium Hyponatremia E87.1 Bipolar disorder F31.9 Active/Remission status: remission status unspecified Finger infection L08.9 Rhabdomyolysis M62.82 Hypothyroid E03.9 Hypothyroidism type: unspecified Ankle pain, right M25.571 Wrist pain, right M25.531 DVT prophylaxis Z29.9
== END 2020-05-24 13:43 | DRG 885 ==
LOC: ED 18:11 → SUATTDRO 21:29 → 2N 21:29

== ENCOUNTER 2020-06-01 16:23 | Inpatient (IN) ==
[2020-06-01] MEDS ORDERED: SODIUM CHLORIDE 0.9% 1000ML 1,000 ML IV SCH (16:30)
[2020-06-01] MEDS ORDERED: DIPHTHERIA/TETANUS/PERTUSSIS 0.5 ML SYR/VIAL IM ONE ×2 (16:38→19:09)
--- NOTE | 2020-06-01 16:38 | Emergency Department Note ---
Impression & Plan Acute hyponatremia, Seizure, Hypophosphatemia, Hypomagnesemia ED Provider Note NAME: SYL [id number] YAKELIN AGE: 40 SEX: M : 1980 ARRIVES VIA: Ambulance INFORMANT: Patient, ED PROVIDER(S): Luis Pierce MD Chief Complaint: Seizure HPI: Patient does present from [facility]. Reportedly unwitnessed but was found after a possible syncopal event. The patient does not have any known history of seizure and denies any bowel or bladder incontinence or tongue biting. Patient does have a known history of bipolar disorder. Patient does have some intermittent confusion. CEOs were not able to comment on the patient's baseline. The patient does complain of some mild pain. The patient does have a bandage over the right forehead. Patient is unsure as to whether or not his tetanus is up-to-date. The patient denies blood thinning medications. Patient denies fevers or chills. Per the [place] 0 no active cases of coronavirus at [facility]. ROS: See HPI for pertinent positives and negatives. A total of 10 systems were reviewed and otherwise negative. Past medical history: See below Surgical history: See below Social history: See below Physical Exam: GENERAL: NAD, non-toxic. C-collar in place, wound noted to the right forehead. Hemostatic. EYE EXAM: Normal conjunctiva. PERRL, no anisocoria and EOM's grossly intact w/o pain. Head: 3 cm laceration just lateral to the right eyebrow, hemostatic. NECK: Supple, no nuchal rigidity, no adenopathy, non-tender. No signs of meningismus. C-collar broken down trachea midline no midline C-spine TTP or tenderness palpation LUNGS: Clear to auscultation. Normal chest wall mechanics. HEART: NSR, no MRG. ABDOMEN: Abdomen soft, non-tender, normo-active bowel sounds, no masses, no rebound or guarding. BACK: No CVA TTP. SKIN: No rashes and no bruising. UPPER EXTREMITIES: Upper extremities are grossly normal. LOWER EXTREMITIES: Grossly normal, no edema. NEURO EXAM: Easily arousable, follows basic commands oriented to person and date of . Moves all 4 extremities and denies sensory deficits. Differential diagnoses: Epilepsy, infection, hypoglycemia, electrolyte abnormalities, cardiac sources, intracerebral event, trauma, toxicologic, neurologic, syncope, as well as other pathologies. Course: Patient was seen and evaluated the bedside. Full history physical exam was performed. EKG: Indication: Seizure/syncope Normal sinus rhythm, rate of 86, normal intervals, normal axis, no ST changes or T WI. No significant change from May 23, 2020 Imaging Studies: Radiology results as stated below per my review in the radiologist's interpretation: CT head/brain wo con CLINICAL HISTORY: seizure; prisoner COMPARISON STUDY: 05/22/2020 TECHNIQUE: Axial CT of the brain is performed from the vertex to the skull base. IV contrast was not administered for this examination. A dose lowering technique was utilized adhering to the principles of ALARA. CT DOSE: FINDINGS: No intra or extra-axial mass lesions are visualized. There is no CT evidence of acute cortical infarction. There is no evidence of midline shift. There is no acute hemorrhage. No calvarial fractures are visualized. There is no evidence of pathologic ventricular dilatation. There is no evidence of acute sinusitis IMPRESSION: No acute intracranial findings ACT 112: Negative or not required by law. Electronically signed by: Joseph Bailey M.D. 06/01/2020 5:50 PM Dictated: 06/01/201749 Transcribed: 06/01/201749 CT OF THE CERVICAL SPINE CLINICAL HISTORY: Syncope with neck trauma. Neck pain. COMPARISON STUDY: No previous studies for comparison. CT DOSE: 1065.52 mGy.cm TECHNIQUE: CT scan of the cervical spine was performed from the skull base to the thoracic inlet. Images are reviewed in the axial, sagittal, and coronal planes. IV contrast was not administered for this examination. A dose lowering technique was utilized adhering to the principles of ALARA. FINDINGS: The visualized portions of the lung apices reveal no evidence of pneumothorax. The prevertebral soft tissues are normal. No fractures or subluxations are visualized. There are mild degenerative changes IMPRESSION: No evidence of acute fracture or traumatic subluxation. ACT 112: Negative or not required by law. Electronically signed by: Joseph Bailey M.D. 06/01/2020 5:56 PM Dictated: 06/01/201753 Transcribed: 06/01/201753 Cardiac monitoring: An order was placed for continuous cardiac monitoring. The monitor shows a rate of 87 with sinus rhythm. Procedures: Laceration repair performed by Dr. Pierce Location: Lateral to the right eyebrow Total length: 3 cm Complexity: Simple Verbal consent was obtained after the risks and benefits were explained, including but not limited to bleeding, scarring, infection, pain, and bone/j oint/nerve damage. At this time, the risks of the procedure are less than the risks of NOT performing the procedure. A time out was taken and the correct patient and site identified. The skin was prepped with chlorhexidine. The wound edges were approximated using Dermabond and Steri-Strip. Hemostasis and excellent approximation was achieved. No complications and the patient tolerated the procedure well. MDM: Patient was seen due to concern for possible seizure and syncope. The patient did a bladder complete along with a CT of the head and cervical spine. Patient CT of the head and cervical spine were negative. The patient does have a significantly low sodium and hyponatremia. The patient was ordered 3% hypertonic. There was concern about the patient having some hypoxic events. After seeing the patient the patient does seem to fall asleep but then is easily arousable. The patient does desat into the 80s. Given some sonorous breathing I believe the patient may have some evidence of obstructive sleep apnea. VBG was ordered and the patient was placed on BiPAP. I did speak with the on-call preparer making department Dr. Webber to did have the resident see the patient at the bedside. I also did speak with the on-call hospitalist Dr. Smith. The patient was subsequently mated to the intensive care unit. Patient did have multiple different electrolyte abnormalities. The patient did have a second IV line placed and the patient was ordered treatment of additional electrolytes. VBG does not show any CO2 retention. Patient did have a low serum awesome this. Critical Care: I have personally spent 95 minutes of critical care time in direct management of this patient. This includes bedside care, interpretation of diagnostic studies, and testing, discussion with consultants, patient, and family members, and other require inpatient management activities. This 95 minutes is in excess of all separately billable procedures. Past Med/Surg History Medical History (Updated 06/01/20 @ 19:19 by Shiraz Smith MD) Bipolar disorder Hyponatremia Hypothyroid Suicidal ideation Suicide gesture Social History Smoking Status: Former smoker Tobacco Type: Cigarettes Hx Alcohol Use: No Hx Substance Use: No Preferred Language: [place] [employer] Required: No Beliefs That Will Affect Care: None Current Living Situation: Other Current Living Situation Comment: [facility] facility Other Information That Helps Us Care for You: No Feels Safe at Home: Yes Allergies Allergies Allergy/AdvReac Type Severity Reaction Status Date / Time amoxicillin Allergy Mild Unknown Unverified 05/22/20 19:31 Penicillins Allergy Unknown UNKNOWN Verified 05/22/20 19:31 Home Meds Home Medications Medication Instructions Recorded Confirmed levothyroxine 25 mcg PO DAILY 11/15/19 05/22/20 olanzapine 5 mg PO HS 11/15/19 05/22/20 diphenhydramine HCl 100 mg PO HS 05/22/20 05/22/20 Previous Rx's Medication Instructions Recorded clindamycin HCl 600 mg PO TID 9 Days #54 cap 05/24/20 miconazole nitrate [Desenex] 1 applic EXT BID #43 g 05/24/20 mupirocin 1 applic EXT BID #15 g 05/24/20 olanzapine 5 mg PO Q4H PRN #30 tab 05/24/20 Results & Data (ED) Vital Signs Vital Signs - 24 hr 06/01/20 16:23 06/01/20 16:34 06/01/20 16:38 Temperature 36.6 C Temperature Source Oral Pulse Rate 87 90 84 Pulse Rate from SpO2 Sensor 88 84 Pulse Rhythm Regular Pulse Strength Normal Respiratory Rate 18 18 20 Respiratory Effort / Characteristics Non-Labored Spontaneous Respiratory Depth Normal Respiratory Pattern Regular Blood Pressure 138/87 138/87 Blood Pressure Mean 104 92 Blood Pressure Position Lying Pulse Oximetry 100 100 100 Oxygen Delivery Method Room Air Sepsis Recent Fever Within 48 Hours No Sepsis New/Unexplained Change in Mental Status No Sepsis Action Taken by Nursing No Action Required 06/01/20 17:00 06/01/20 17:30 06/01/20 17:54 Temperature Temperature Source Pulse Rate 85 78 88 Pulse Rate from SpO2 Sensor 88 78 89 Pulse Rhythm Pulse Strength Respiratory Rate 20 20 20 Respiratory Effort / Characteristics Respiratory Depth Respiratory Pattern Blood Pressure 138/78 Blood Pressure Mean 84 Blood Pressure Position Pulse Oximetry 100 82 L 100 Oxygen Delivery Method Room Air Sepsis Recent Fever Within 48 Hours Sepsis New/Unexplained Change in Mental Status Sepsis Action Taken by Nursing 06/01/20 17:55 06/01/20 18:00 06/01/20 18:01 Temperature Temperature Source Pulse Rate 92 H 90 83 Pulse Rate from SpO2 Sensor 94 H 89 84 Pulse Rhythm Pulse Strength Respiratory Rate 33 H 34 H 34 H Respiratory Effort / Characteristics Respiratory Depth Respiratory Pattern Blood Pressure 134/79 128/84 Blood Pressure Mean 92 92 Blood Pressure Position Pulse Oximetry 100 100 100 Oxygen Delivery Method Sepsis Recent Fever Within 48 Hours Sepsis New/Unexplained Change in Mental Status Sepsis Action Taken by Nursing 06/01/20 18:15 06/01/20 18:30 06/01/20 18:31 Temperature Temperature Source Pulse Rate 96 H 84 86 Pulse Rate from SpO2 Sensor 97 H 86 86 Pulse Rhythm Pulse Strength Respiratory Rate 28 H 30 H 24 Respiratory Effort / Characteristics Respiratory Depth Respiratory Pattern Blood Pressure 127/81 129/81 Blood Pressure Mean 84 88 Blood Pressure Position Pulse Oximetry 100 100 100 Oxygen Delivery Method Sepsis Recent Fever Within 48 Hours Sepsis New/Unexplained Change in Mental Status Sepsis Action Taken by [facility] Medications Current Medication List: was personally reviewed by me Laboratory Data Attestation: I reviewed the patient's lab results. Result diagrams: 06/01/20 16:44 06/01/20 19:53 Lab Results 06/01/20 06/01/20 06/01/20 Range/Units 16:44 16:44 16:44 WBC 5.75 (4.8-10.8) K/uL RBC 3.94 L (4.7-6.1) M/uL Hgb 12.2 L (14.0-18.0) g/dL Hct 33.4 L (42-52) % MCV 84.8 (80-100) fL MCH 31.0 (25-34) pg MCHC 36.5 H (32-36) g/dL RDW Std Deviation 36.5 (36.4-46.3) fL RDW Coeff of Satish 11.8 (11.5-14.5) % Plt Count 284 (130-400) K/uL MPV 9.5 (7.4-10.4) fL Immature Gran % (Auto) 0.5 % Neut % (Auto) 81.1 % Lymph % (Auto) 10.4 % [place] % (Auto) 7.8 % Eos % (Auto) 0.2 % Baso % (Auto) 0.0 % Neut # (Auto) 4.66 (1.4-6.5) K/uL Lymph # (Auto) 0.60 L (1.2-3.4) K/uL [place] # (Auto) 0.45 (0.11-0.59) K/uL Eos # (Auto) 0.01 (0-0.5) K/uL Baso # (Auto) 0.00 (0-0.2) K/uL Immature Gran # (Auto) 0.03 H (0.00-0.02) K/uL Sodium 114 L* (136-145) mmol/L Potassium 4.1 (3.5-5.1) mmol/L Chloride 81 L (98-107) mmol/L Carbon Dioxide 19 L (21-32) mmol/L Anion Gap 14.0 H (3-11) BUN 2 L (7-18) mg/dl Creatinine 0.63 (0.6-1.4) mg/dl Est Cr Clr Drug Dosing 175.2 ml/min Est GFR ( Amer) 140.9 Est GFR (Non-Af Amer) 121.5 BUN/Creatinine Ratio 3.9 L (10-20) Glucose 117 H (70-99) mg/dl Osmolality (280-300) mOsm/kg Calcium 8.5 (8.5-10.1) mg/dl Phosphorus 2.0 L (2.5-4.9) mg/dl Magnesium 1.4 L (1.8-2.4) mg/dl Total Bilirubin 0.6 (0.2-1) mg/dl AST 21 (15-37) U/L ALT 15 (12-78) U/L Alkaline Phosphatase 49 (45-117) U/L Total Protein 6.5 (6.4-8.2) gm/dl Albumin 3.7 (3.4-5.0) gm/dl Globulin 2.8 (2.5-4.0) gm/dl Albumin/Globulin Ratio 1.3 (0.9-2) Salicylates (2.8-20) mg/dl Acetaminophen (10-30) ug/ml Ethyl Alcohol mg/dL < 3.0 (0-3) mg/dl 06/01/20 06/01/20 Range/Units 16:44 18:11 WBC (4.8-10.8) K/uL RBC (4.7-6.1) M/uL Hgb (14.0-18.0) g/dL Hct (42-52) % MCV (80-100) fL MCH (25-34) pg MCHC (32-36) g/dL RDW Std Deviation (36.4-46.3) fL RDW Coeff of Satish (11.5-14.5) % Plt Count (130-400) K/uL MPV (7.4-10.4) fL Immature Gran % (Auto) % Neut % (Auto) % Lymph % (Auto) % [place] % (Auto) % Eos % (Auto) % Baso % (Auto) % Neut # (Auto) (1.4-6.5) K/uL Lymph # (Auto) (1.2-3.4) K/uL [place] # (Auto) (0.11-0.59) K/uL Eos # (Auto) (0-0.5) K/uL Baso # (Auto) (0-0.2) K/uL Immature Gran # (Auto) (0.00-0.02) K/uL Sodium (136-145) mmol/L Potassium (3.5-5.1) mmol/L Chloride (98-107) mmol/L Carbon Dioxide (21-32) mmol/L Anion Gap (3-11) BUN (7-18) mg/dl Creatinine (0.6-1.4) mg/dl Est Cr Clr Drug Dosing ml/min Est GFR ( Amer) Est GFR (Non-Af Amer) BUN/Creatinine Ratio (10-20) Glucose (70-99) mg/dl Osmolality 231 L* (280-300) mOsm/kg Calcium (8.5-10.1) mg/dl Phosphorus (2.5-4.9) mg/dl Magnesium (1.8-2.4) mg/dl Total Bilirubin (0.2-1) mg/dl AST (15-37) U/L ALT (12-78) U/L Alkaline Phosphatase (45-117) U/L Total Protein (6.4-8.2) gm/dl Albumin (3.4-5.0) gm/dl Globulin (2.5-4.0) gm/dl Albumin/Globulin Ratio (0.9-2) Salicylates < 1.7 L (2.8-20) mg/dl Acetaminophen < 2 L (10-30) ug/ml Ethyl Alcohol mg/dL (0-3) mg/dl Administered Medications Potassium Phosphate 15 mmol/ (Sodium Chloride) 255 mls @ 88 mls/hr IV ONE ONE Stop: 06/01/20 21:23 Last Admin: 06/01/20 18:52 Dose: 88 mls/hr Documented by: [id number] Desmopressin Acetate 1 mcg/ (Sodium Chloride) 50.25 mls @ 100 mls/hr IV Q8 PREET Stop: 06/01/20 21:00 Last Admin: 06/01/20 20:31 Dose: 100 mls/hr Documented by: [id number] Discontinued Medications Diphtheria/Pertussis/Tetanus Vacc (Diphtheria/Tetanus/Pertussis 0.5 Ml Syr/Vial) 0.5 ml IM .ONCE ONE Stop: 06/01/20 16:39 Last Admin: 06/01/20 19:11 Dose: 0.5 ml Documented by: [id number] Diphtheria/Pertussis/Tetanus Vacc (Diphtheria/Tetanus/Pertussis 0.5 Ml Syr/Vial) Confirm Administered Dose 0.5 ml IM .STK-MED ONE Stop: 06/01/20 19:10 Last Admin: 06/01/20 19:13 Dose: Not Given Documented by: [id number] Sodium Chloride (Nss 1000ml) 1,000 mls @ 999 mls/hr IV .Q1H1M PREET Stop: 06/01/20 17:30 Last Infusion: 06/01/20 18:31 Dose: 0 mls/hr Documented by: [id number] Admin: 06/01/20 17:30 Dose: 999 mls/hr Documented by: [id number] Magnesium Sulfate/Dextrose (Magnesium Sulfate / D5w) 1 gm in 100 mls @ 100 mls/hr IV NOW STA Stop: 06/01/20 19:11 Last Infusion: 06/01/20 19:52 Dose: 0 mls/hr Documented by: [id number] Admin: 06/01/20 18:52 Dose: 100 mls/hr Documented by: [id number] Sodium Chloride (Hypertonic Saline 3%) 100 mls @ 600 mls/hr IV .Q10M ONE Stop: 06/01/20 18:39 Last Infusion: 06/01/20 19:00 Dose: 0 mls/hr Documented by: [id number] Cosigned by: [id number] Admin: 06/01/20 18:49 Dose: 600 mls/hr Documented by: [id number] Cosigned by: [id number] Potassium Phosphate (Potassium Phos 3 Mmol/1 Ml Infusion) 15 mmol IV NOW STA Stop: 06/01/20 18:12 Last Admin: 06/01/20 18:55 Dose: 15 mmol Documented by: [id number] Sodium Bicarbonate (Sodium Bicarb 8.4% Inj 50 Meq/50 Ml Syr) 50 meq IV NOW STA Stop: 06/01/20 18:12 Last Admin: 06/01/20 20:03 Dose: Not Given Documented by: [id number] Discharge Plan Visit Data Chief Complaint: Seizure ED Provider: Luis Pierce Discharge Problem: Acute hyponatremia, Seizure, Hypophosphatemia, Hypomagnesemia Patient Disposition: Admitted As Inpatient Discharge Instructions Interventions: ED Discharge Assessment Last Done: 06/01/20 19:52
[2020-06-01 17:14] LABS: Eosinophils # (auto) 0.01 K/uL (0-0.5); Eosinophils % (auto) 0.2 %; Hematocrit (blood only) 33.4 % (42-52); Hemoglobin 12.2 g/dL (14.0-18.0); Immature Granulocytes # (auto) 0.03 K/uL (0.00-0.02); Immature Granulocytes % (auto) 0.5 %; Lymphocytes % (auto) 10.4 %; Mean Corpuscular Hgb Conc 36.5 g/dL (32-36); Mean Corpuscular Volume 84.8 fL (80-100); Mean Platelet Volume 9.5 fL (7.4-10.4); Monocytes # (auto) 0.45 K/uL (0.11-0.59); Monocytes % (auto) 7.8 %; Neutrophils # (auto) 4.66 K/uL (1.4-6.5); Neutrophils % (auto) 81.1 %; Platelet Count 284 K/uL (130-400); RDW Coefficient of Variation 11.8 % (11.5-14.5); RDW Standard Deviation 36.5 fL (36.4-46.3); Red Blood Count 3.94 M/uL (4.7-6.1); White Blood Count 5.75 K/uL (4.8-10.8)
[2020-06-01 17:45] LABS: Acetaminophen < 2 ug/ml (10-30); Salicylate < 1.7 mg/dl (2.8-20)
--- NOTE | 2020-06-01 17:52 | CT Scan Report ---
CT head/brain wo con CLINICAL HISTORY: seizure; prisoner COMPARISON STUDY: 05/22/2020 TECHNIQUE: Axial CT of the brain is performed from the vertex to the skull base. IV contrast was not administered for this examination. A dose lowering technique was utilized adhering to the principles of ALARA. CT DOSE: FINDINGS: No intra or extra-axial mass lesions are visualized. There is no CT evidence of acute cortical infarc tion. There is no evidence of midline shift. There is no acute hemorrhage. No calvarial fractures ar e visualized. There is no evidence of pathologic ventricular dilatation. There is no evidence of acute sinusitis IMPRESSION: No acute intracranial findings ACT 112: Negative or not required by law. Electronically signed by: Joseph Bailey M.D. 06/01/2020 5:50 PM
--- NOTE | 2020-06-01 17:57 | CT Scan Report ---
CT OF THE CERVICAL SPINE CLINICAL HISTORY: Syncope with neck trauma. Neck pain. COMPARISON STUDY: No previous studies for comparison. CT DOSE: 1065.52 mGy.cm TECHNIQUE: CT scan of the cervical spine was performed from the skull base to the thoracic inlet. Danelle ges are reviewed in the axial, sagittal, and coronal planes. IV contrast was not administered for thi s examination. A dose lowering technique was utilized adhering to the principles of ALARA. FINDINGS: The visualized portions of the lung apices reveal no evidence of pneumothorax. The prevertebral soft tissues are normal. No fractures or subluxations are visualized. There are mild degenerative changes IMPRESSION: No evidence of acute fracture or traumatic subluxation. ACT 112: Negative or not required by law. Electronically signed by: Joseph Bailey M.D. 06/01/2020 5:56 PM
[2020-06-01 18:07] LABS: Albumin Globulin Ratio 1.3 (0.9-2); Albumin Level 3.7 gm/dl (3.4-5.0); BUN Creatinine Ratio 3.9 (10-20); Bilirubin,Total 0.6 mg/dl (0.2-1); Calcium 8.5 mg/dl (8.5-10.1); Creatinine Clr Calc Pharmacy 175.2 ml/min; Est GFR (African American) 140.9; Est GFR (Non-African American) 121.5; Globulin 2.8 gm/dl (2.5-4.0); Magnesium 1.4 mg/dl (1.8-2.4); Potassium 4.1 mmol/L (3.5-5.1); Total Protein 6.5 gm/dl (6.4-8.2)
[2020-06-01] MEDS ORDERED: POTASSIUM PHOS 3 MMOL/1 ML INFUSION IV STA (18:11)
[2020-06-01] MEDS ORDERED: SODIUM BICARB 8.4% INJ 50 MEQ/50 ML SYR IV STA (18:11)
[2020-06-01] MEDS ORDERED: MAGNESIUM SULFATE / D5W 1 GM/100 ML BAG IV STA (18:12)
[2020-06-01] MEDS ORDERED: SODIUM CHLORIDE 3 % 50 ML IV ONE (18:16)
[2020-06-01] MEDS ORDERED: SODIUM CHLORIDE 3 % 100 ML IV ONE (18:30)
[2020-06-01] MEDS ORDERED: POTASSIUM PHOSPHATE 15 MMOL in SODIUM CHLORIDE 0.9% 250 ML IV ONE (18:30)
--- NOTE | 2020-06-01 18:46 | Critical Care Consultation ---
Date of Consultation June 01, 2020 Assessment & Plan (1) Hyponatremia: Reason Critically Ill: Patient is a 40y/o male with possible history of schizophrenia, bipolar disorder; reported to the hospital from [facility], where he was in a locked unit following recent discharge from hospital. Was found down within his cell, after possible syncopal event. In the emergency department patient was found to have a sodium level of 114, with a serum osmolality of 231, with intermittent confusion and inability to provide consistent story. Admitted to the ICU for observation in the setting of severe hyponatremia, with intermittent desaturations during somnolent episodes. Differential to include but is not limited to primary polydipsia, glucocorticoid insufficiency, hypothyroidism. Neuro: -Acceptable level of consciousness, responsive to vocal command, but resists performing directed actions -CT head 06/01 demonstrated negative for acute intracranial findings -CT C-spine 06/01 demonstrated negative for acute fracture or traumatic subluxation of C-spine Cardiac/Vascular: -No history of hypertension, MIs -EKG 06/01 demonstrated QTC 457, peaked T waves, no ST segment changes -continue to monitor on telemetry Respiratory: -No previous history of respiratory disease -Oxygen saturations greater than 94% while on room air while awake -Intermittent desaturations while asleep on room air, started on 2 L nasal cannula while asleep -Continue to monitor on continuous pulse oximetry GI/Nutrition: -N.p.o., will allow patient to drink oral fluids for rehydration -Monitor strict I's and O's Renal/Lytes: -Na 114, serum osmolality 231, urine osmolality 96, urine sodium 39, urine potassium 5.6 -Reportedly resides at lower sodium levels from baseline -Recent hospitalization for hyponatremia demonstrated he was functional between 126 and 138 -Gave DDAVP 1 mcg; further doses scheduled every 8 as needed given propensity for overcorrection -BMP q4h starting at 2000 -Monitor strict I's and O's : -Varela catheter in place -Approximately 2800mL out following admission, this number is slightly lower than true output as patient had 1 large volume incontinent event prior to Varela being placed in ED -Monitor strict I's and O's ENDO: -History of hypothyroidism: Recent TSH within normal limits -Continue levothyroxine in a.m. HEME: -H&H stable ID: -No current signs or symptoms of infectious process Lines/IV Access: -PIV x2 (2) Depression: (3) Insomnia: (4) Bipolar disorder: Supervising Physician Co-Signing Physician Notes Dr. Haddad was resident physician during care of patient. I discussed the case with the resident. I generally agree with the findings and plan. Severe hyponatremia with presumptive seizures. Advised emergency department to administer 100 mL's of 3% saline. In my report with Dr. Haddad patient had large volume urine output so we will proceed with DDAVP. Patient will be allowed to take free water however no additional IV fluids or food at this time. Every 4 sodium checks. 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 Patient is critically ill. History of Present Illness History of Present Illness Patient is a 40y/o male with possible history of schizophrenia, bipolar disorder; reported to the hospital from [facility], where he was in a locked unit following recent discharge from hospital. Was found down within his cell, after possible syncopal event. In the emergency department patient was found to have a sodium level of 114, with a serum osmolality of 231, with intermittent confusion and inability to provide consistent story. He was recently in the hospital approximately 1 week ago, for altered mental status with similar hyponatremia. At that time he had endorsed that he had stopped taking his mood controlling medications over the last several days. He continues to endorse that he is not taking any of these medications at this time. States "I have not taken any medications in 3 years." In speaking with guards, patient has not been taking his medications as discharged from the hospital. He was in a locked unit out of concern for COVID since recent discharge from hospital per assisted policy. In this cell he did not have access to additional medications alternative medications, but did have access to toilet bowl with water and sink with water. Is not previously known to drink large amounts of water, patient denies drinking high volumes of water or "drinking any water ever", on presentation to the ICU patient asked nursing staff for "large volume of water to drink." Admitted to the ICU for observation in the setting of severe hyponatremia, with intermittent desaturations during somnolent episodes. Allergies Allergy/AdvReac Type Severity Reaction Status Date / Time amoxicillin Allergy Mild Unknown Unverified 05/22/20 19:31 Penicillins Allergy Unknown UNKNOWN Verified 05/22/20 19:31 Home Medications Home Medications Medication Instructions Recorded Confirmed Type levothyroxine 25 mcg PO DAILY 11/15/19 05/22/20 History olanzapine 5 mg PO HS 11/15/19 05/22/20 History diphenhydramine HCl 100 mg PO HS 05/22/20 05/22/20 History clindamycin HCl 600 mg PO TID 9 Days #54 cap 05/24/20 Rx miconazole nitrate [Desenex] 1 applic EXT BID #43 g 05/24/20 Rx mupirocin 1 applic EXT BID #15 g 05/24/20 Rx olanzapine 5 mg PO Q4H PRN #30 tab 05/24/20 Rx Patient History Medical History (Updated 06/02/20 @ 02:21 by Shiraz Smith MD) Bipolar disorder Hyponatremia Hypothyroid Suicidal ideation Suicide gesture Social History Smoking Status: Former smoker Tobacco Type: Cigarettes Hx Alcohol Use: No Hx Substance Use: No Preferred Language: Panamanian Casing Finisher And Stuffer Required: No Beliefs That Will Affect Care: None Current Living Situation: Other Current Living Situation Comment: Correctional facility Other Information That Helps Us Care for You: No Feels Safe at Home: Yes Review of Systems Review of Systems: Unobtainable due to mental health condition Physical Exam Constitutional: WD/WN, vitals as above Eyes: PERRL, conjunctivae normal, anicteric sclerae ENMT: external ear and nose normal, oropharynx normal Neck: trachea midline, no thyromegaly Respiratory: normal respiratory effort, lungs clear to auscultation Cardiovascular: Rate/Rhythm: regular rate and regular rhythm Heart Sounds: normal S1 Vessels: no JVD Gastrointestinal (Abdomen): normal bowel sounds, soft, nontender, no hepatosplenomegaly Musculoskeletal: Extremities: no cyanosis and no clubbing Skin: no rashes, warm and dry Trauma: + laceration (above right eye (closed with dermabond and steristrip)) Neurologic: PERRL, EOMI, accommodation nl, no face palsy, no dysarthria Psychiatric: Orientation: alert and oriented x 3 Lymphatic: no cervical lymphadenopathy Results & Data Results & Data ([facility]) Vital Signs (Past 12 Hours) Vital Signs Temp Pulse Resp BP Pulse Ox 06/01/20 18:01 83 34 H 100 06/01/20 18:00 90 34 H 128/84 100 06/01/20 17:55 92 H 33 H 134/79 100 06/01/20 17:54 88 20 138/78 100 06/01/20 17:30 78 20 82 L 06/01/20 17:00 85 20 06/01/20 16:38 84 20 100 06/01/20 16:34 90 18 138/87 100 06/01/20 16:23 36.6 C 87 18 138/87 100 Laboratory Results 06/01/20 06/01/20 06/01/20 Range/Units 18:11 16:44 16:44 WBC 5.75 (4.8-10.8) K/uL RBC 3.94 L (4.7-6.1) M/uL Hgb 12.2 L (14.0-18.0) g/dL Hct 33.4 L (42-52) % MCV 84.8 (80-100) fL MCH 31.0 (25-34) pg MCHC 36.5 H (32-36) g/dL RDW Std Deviation 36.5 (36.4-46.3) fL RDW Coeff of Satish 11.8 (11.5-14.5) % Plt Count 284 (130-400) K/uL MPV 9.5 (7.4-10.4) fL Immature Gran % (Auto) 0.5 % Neut % (Auto) 81.1 % Lymph % (Auto) 10.4 % Towner % (Auto) 7.8 % Eos % (Auto) 0.2 % Baso % (Auto) 0.0 % Neut # (Auto) 4.66 (1.4-6.5) K/uL Lymph # (Auto) 0.60 L (1.2-3.4) K/uL Towner # (Auto) 0.45 (0.11-0.59) K/uL Eos # (Auto) 0.01 (0-0.5) K/uL Baso # (Auto) 0.00 (0-0.2) K/uL Immature Gran # (Auto) 0.03 H (0.00-0.02) K/uL Sodium (136-145) mmol/L Potassium (3.5-5.1) mmol/L Chloride (98-107) mmol/L Carbon Dioxide (21-32) mmol/L Anion Gap (3-11) BUN (7-18) mg/dl Creatinine (0.6-1.4) mg/dl Est Cr Clr Drug Dosing ml/min Est GFR ( Amer) Est GFR (Non-Af Amer) BUN/Creatinine Ratio (10-20) Glucose (70-99) mg/dl Osmolality Pending Calcium (8.5-10.1) mg/dl Phosphorus (2.5-4.9) mg/dl Magnesium (1.8-2.4) mg/dl Total Bilirubin (0.2-1) mg/dl AST (15-37) U/L ALT (12-78) U/L Alkaline Phosphatase (45-117) U/L Total Protein (6.4-8.2) gm/dl Albumin (3.4-5.0) gm/dl Globulin (2.5-4.0) gm/dl Albumin/Globulin Ratio (0.9-2) Salicylates < 1.7 L (2.8-20) mg/dl Acetaminophen < 2 L (10-30) ug/ml Ethyl Alcohol mg/dL (0-3) mg/dl 06/01/20 06/01/20 Range/Units 16:44 16:44 WBC (4.8-10.8) K/uL RBC (4.7-6.1) M/uL Hgb (14.0-18.0) g/dL Hct (42-52) % MCV (80-100) fL MCH (25-34) pg MCHC (32-36) g/dL RDW Std Deviation (36.4-46.3) fL RDW Coeff of Satish (11.5-14.5) % Plt Count (130-400) K/uL MPV (7.4-10.4) fL Immature Gran % (Auto) % Neut % (Auto) % Lymph % (Auto) % Towner % (Auto) % Eos % (Auto) % Baso % (Auto) % Neut # (Auto) (1.4-6.5) K/uL Lymph # (Auto) (1.2-3.4) K/uL Towner # (Auto) (0.11-0.59) K/uL Eos # (Auto) (0-0.5) K/uL Baso # (Auto) (0-0.2) K/uL Immature Gran # (Auto) (0.00-0.02) K/uL Sodium 114 L* (136-145) mmol/L Potassium 4.1 (3.5-5.1) mmol/L Chloride 81 L (98-107) mmol/L Carbon Dioxide 19 L (21-32) mmol/L Anion Gap 14.0 H (3-11) BUN 2 L (7-18) mg/dl Creatinine 0.63 (0.6-1.4) mg/dl Est Cr Clr Drug Dosing 175.2 ml/min Est GFR ( Amer) 140.9 Est GFR (Non-Af Amer) 121.5 BUN/Creatinine Ratio 3.9 L (10-20) Glucose 117 H (70-99) mg/dl Osmolality Calcium 8.5 (8.5-10.1) mg/dl Phosphorus 2.0 L (2.5-4.9) mg/dl Magnesium 1.4 L (1.8-2.4) mg/dl Total Bilirubin 0.6 (0.2-1) mg/dl AST 21 (15-37) U/L ALT 15 (12-78) U/L Alkaline Phosphatase 49 (45-117) U/L Total Protein 6.5 (6.4-8.2) gm/dl Albumin 3.7 (3.4-5.0) gm/dl Globulin 2.8 (2.5-4.0) gm/dl Albumin/Globulin Ratio 1.3 (0.9-2) Salicylates (2.8-20) mg/dl Acetaminophen (10-30) ug/ml Ethyl Alcohol mg/dL < 3.0 (0-3) mg/dl Medications Administered Current Inpatient Medications Magnesium Sulfate/Dextrose (Magnesium Sulfate / D5w) 1 gm in 100 mls @ 100 mls/hr IV NOW STA Stop: 06/01/20 19:11 Potassium Phosphate 15 mmol/ (Sodium Chloride) 255 mls @ 88 mls/hr IV ONE ONE Stop: 06/01/20 21:23 Resident Activity Tracking Resident Involvement: Resident Care Provided Care Provided: Adult Hospital Medicine (Critical Care) (1) Bipolar disorder Active/Remission status: remission status unspecified Qualified Code(s): F31.9 - Bipolar disorder, unspecified
--- NOTE | 2020-06-01 19:20 | History & Physical Report ---
Date of Service June 01, 2020 Assessment & Plan (1) Hyponatremia: Admit to ICU. Associated with seizures. 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 NSS 1L bolus given in ER. Repeat sodium not taken after this. Hypertonic saline requested by director of cath lab, 100 ml bolus given. Urine Na/osm taken post hypertonic saline. Repeat BMP now. Will defer further management to ICU team (2) Hypothyroid: TSH WNL during his last admission Continue levothyroxine 25 mcg p.o. daily (3) Apnea, transient: Noted in ER. Improved with BiPAP. Continuous O2 monitoring in ICU. (4) Bipolar disorder: Will defer to ICU team regarding restarting his antipsychotics. (5) Syncope: Unwitnessed. Monitor on telemetry for arrhythmia. (6) Seizure-like activity: Monitor . Need for collateral history from group home. (7) Hypomagnesemia: Replace per ICU protocol. Magnesium level in a.m. (8) Hypophosphatemia: Replace per ICU protocol. Phosphorus level in a.m. Admission and Anticipated Discharge Date Admission Date: 06/01/2020 History of Present Illness Chief Complaint: Hyponatremia Primary Care Provider: PETE Medley Be Tinoco is a 40-year-old male who presents to the ER after being found on the floor with suspected seizure-like activity. Initially suspected to have a syncopal event but was unwitnessed. No prior known seizures. Unknown baseline at this time. However per ER nurse this is similar to his recent presentation o n May 22. On that occasion he was diagnosed with acute psychosis, sid, right middle finger cellulitis and rhabdomyolysis. In the ER the patient was having witnessed apnea episodes which responded to sternal rubbing. He was placed on BiPAP for this reason. He is nonverbal with myself and noncompliant with examination but occasionally following simple commands. Does not appear agitated. No seizure-like activity reported in the emergency room. Allergies Allergy/AdvReac Type Severity Reaction Status Date / Time amoxicillin Allergy Mild Unknown Unverified 05/22/20 19:31 Penicillins Allergy Unknown UNKNOWN Verified 05/22/20 19:31 Home Medications Home Medications Medication Instructions Recorded Confirmed Type levothyroxine 25 mcg PO DAILY 11/15/19 05/22/20 History olanzapine 5 mg PO HS 11/15/19 05/22/20 History diphenhydramine HCl 100 mg PO HS 05/22/20 05/22/20 History clindamycin HCl 600 mg PO TID 9 Days #54 cap 05/24/20 Rx miconazole nitrate [Desenex] 1 applic EXT BID #43 g 05/24/20 Rx mupirocin 1 applic EXT BID #15 g 05/24/20 Rx olanzapine 5 mg PO Q4H PRN #30 tab 05/24/20 Rx Past Med/Surg History Medical History (Updated 06/02/20 @ 11:31 by Shiraz Smith MD) Bipolar disorder Hyponatremia Hypothyroid Suicidal ideation Suicide gesture Social History Smoking Status: Former smoker Tobacco Type: Cigarettes Hx Alcohol Use: No Hx Substance Use: No Preferred Language: Irish Communication Ability: Effective Electrical Development Engineer Required: No Beliefs That Will Affect Care: None Current Living Situation: Other Current Living Situation Comment: Correctional facility Other Information That Helps Us Care for You: No Feels Safe at Home: Yes Review of Systems Review of Systems: Unobtainable due to cognitive status Physical Exam Constitutional: well developed; + not well nourished and no acute distress Eyes: + anicteric sclerae; normal pupil size (equal, unable to test if reactive to light as patient noncompliant with exam) Neck: trachea midline Respiratory: normal respiratory effort, lungs clear to auscultation Cardiovascular: Rate/Rhythm: regular rate and regular rhythm Heart Sounds: no murmur Extremities: normal capillary refill; no calf tenderness and no pedal edema Gastrointestinal (Abdomen): Inspection/Auscultation: abdomen normal to inspection and normal bowel sounds; abdomen not distended Percussion/Palpation: abdomen soft; abdomen nontender, no guarding and abdomen not rigid Musculoskeletal: Moving all 4 extremities per ER nurse Neurologic: moves all extremities, awake and + confused Cranial Nerves: normal facial strength (Grossly appears normal) Not following commands therefore unable to complete neurological exam Psychiatric: Orientation: alert; + not oriented x 3 (No answering) Insight: + severely impaired insight Genitourinary: no CVA tenderness Results & Data Results & Data ([facility]) Vital Signs (Past 12 Hours) Vital Signs Temp Pulse Resp BP Pulse Ox 06/01/20 18:56 91 H 22 121/79 85 L 06/01/20 18:31 86 24 100 06/01/20 18:30 84 30 H 129/81 100 06/01/20 18:15 96 H 28 H 127/81 100 06/01/20 18:01 83 34 H 100 06/01/20 18:00 90 34 H 128/84 100 06/01/20 17:55 92 H 33 H 134/79 100 06/01/20 17:54 88 20 138/78 100 06/01/20 17:30 78 20 82 L 06/01/20 17:00 85 20 100 06/01/20 16:38 84 20 100 06/01/20 16:34 90 18 138/87 100 06/01/20 16:23 36.6 C 87 18 138/[address] head/brain wo con IMPRESSION: No acute intracranial findings CT OF THE CERVICAL SPINE IMPRESSION: No evidence of acute fracture or traumatic subluxation. ECG Indication: chest pain Rate (beats per minute): 86 Rhythm: normal sinus Findings: no acute ischemic change Comparison ECG Date: from (May 23, 2020) Change: no significant change Code Status & VTE Plan Code Status Full VTE Prophylaxis Plan VTE Prophylaxis will be ordered: Yes PG Care Time/CCT Total # of Minutes Spent Total Time Spent with Patient: Total time spent is greater than 50% in coordination of care (as documented) at patient's floor/unit and/or counseling patient: Coding Level of Care Code 37093 Initial Inpt Care Lvl 3 Diagnoses Hyponatremia E87.1 Hypothyroid E03.9 Hypothyroidism type: unspecified Apnea, transient R06.81 Bipolar disorder F31.9 Active/Remission status: remission status unspecified Syncope R55 Seizure-like activity R56.9 Hypomagnesemia E83.42 Hypophosphatemia E83.39 (1) Bipolar disorder Active/Remission status: remission status unspecified Qualified Code(s): F31.9 - Bipolar disorder, unspecified (2) Hypothyroid Hypothyroidism type: unspecified Qualified Code(s): E03.9 - Hypothyroidism, unspecified
[2020-06-01] MEDS ORDERED: ICU PROTOCOL FOR HYPERGLYCEMIA PRN (19:51)
[2020-06-01 20:09] LABS: Base Excess VBG -1.8 mEq/L; Oxygen Saturation VBG 66.5 %; pH VBG 7.45 (7.36-7.41)
[2020-06-01] MEDS ORDERED: DESMOPRESSIN ACETATE 1 MCG in SODIUM CHLORIDE 0.9% 50 ML IV SCH ×2 (20:30→22:00)
[2020-06-01 20:31] LABS: BUN Creatinine Ratio 4.8 (10-20); Calcium 8.9 mg/dl (8.5-10.1); Creatinine Clr Calc Pharmacy 168.4 ml/min; Est GFR (African American) 144.7; Est GFR (Non-African American) 124.9; Potassium 3.7 mmol/L (3.5-5.1)
[2020-06-01 20:34] LABS: Appearance Urine Clear (Clear); Bilirubin Urine Negative (Negative); Blood Urine Negative (Negative); Color Urine Yellow; Glucose Urine UA Negative (Negative); Ketones Urine Negative (Negative); Leukocyte Esterase Urine Negative (Negative); Nitrite Urine Negative (Negative); Protein Urine Negative (Negative); Specific Gravity Urine 1.004 (1.000-1.030); Urobilinogen Urine Negative (Negative); pH Urine 7.5 (4.5-7.5)
[2020-06-01 20:45] LABS: Urine Potassium 5.6 mmol/L
[2020-06-02 00:09] LABS: BUN Creatinine Ratio 4.3 (10-20); Calcium 8.8 mg/dl (8.5-10.1); Creatinine Clr Calc Pharmacy 177.4 ml/min; Est GFR (African American) 147.9; Est GFR (Non-African American) 127.6; Potassium 3.8 mmol/L (3.5-5.1)
[2020-06-02] MEDS: DESMOPRESSIN ACETATE 1 MCG in SODIUM CHLORIDE 0.9% 50 ML IV SCH ×3 (04:15→19:36)
[2020-06-02 04:35] LABS: Eosinophils # (auto) 0.04 K/uL (0-0.5); Hematocrit (blood only) 34.2 % (42-52); Hemoglobin 12.3 g/dL (14.0-18.0); Immature Granulocytes # (auto) 0.01 K/uL (0.00-0.02); Immature Granulocytes % (auto) 0.3 %; Lymphocytes # (auto) 1.05 K/uL (1.2-3.4); Lymphocytes % (auto) 27.1 %; Mean Corpuscular Hemoglobin 30.7 pg (25-34); Mean Corpuscular Volume 85.3 fL (80-100); Mean Platelet Volume 9.5 fL (7.4-10.4); Monocytes # (auto) 0.68 K/uL (0.11-0.59); Monocytes % (auto) 17.6 %; Neutrophils # (auto) 2.09 K/uL (1.4-6.5); Platelet Count 285 K/uL (130-400); RDW Standard Deviation 37.5 fL (36.4-46.3); Red Blood Count 4.01 M/uL (4.7-6.1); White Blood Count 3.87 K/uL (4.8-10.8)
[2020-06-02 04:53] LABS: BUN Creatinine Ratio 5.7 (10-20); Blood Urea Nitrogen 3 mg/dl (7-18); Calcium 8.4 mg/dl (8.5-10.1); Carbon Dioxide 21 mmol/L (21-32); Chloride 91 mmol/L (98-107); Creatinine Clr Calc Pharmacy 198.7 ml/min; Est GFR (African American) > 150.0; Est GFR (Non-African American) 133.7; Glucose 80 mg/dl (70-99); Potassium 3.9 mmol/L (3.5-5.1); Sodium 121 mmol/L (136-145)
[2020-06-02 04:57] LABS: Creatine Kinase 198 U/L (39-308); Phosphorus 3.4 mg/dl (2.5-4.9)
--- NOTE | 2020-06-02 05:48 | Critical Care Progress Note ---
Date of Service June 02, 2020 Assessment & Plan (1) Hyponatremia: Reason Critically Ill: Patient is a 40y/o male with possible history of schizophrenia, bipolar disorder; reported to the hospital from [facility], where he was in a locked unit following recent discharge from hospital. Was found down within his cell, after possible syncopal event. In the emergency department patient was found to have a sodium level of 114, with a serum osmolality of 231, with intermittent confusion and inability to provide consistent story. Admitted to the ICU for observation in the setting of severe hyponatremia, with intermittent desaturations during somnolent episodes. Neuro: -CAM ICU negative -CT head 06/01 demonstrated negative for acute intracranial findings -CT C-spine 06/01 demonstrated negative for acute fracture or traumatic subluxation of C-spine Cardiac/Vascular: -No history of hypertension, MIs -EKG 06/01 demonstrated QTC 457, peaked T waves, no ST segment changes -continue to monitor on telemetry Respiratory: -No previous history of respiratory disease -Oxygen saturations greater than 94% while on room air while awake -Intermittent desaturations while asleep on room air, started on 2 L nasal cannula while asleep -Continue to monitor on continuous pulse oximetry GI/Nutrition: -Low salt diet, patient allowed to have as much free water to drink as desired, but only free water -Monitor strict I's and O's Renal/Lytes: -Admission Na 114, serum osmolality 231, urine osmolality 96, urine sodium 39, urine potassium 5.6 -Improved this AM to 121 -Reportedly resides at lower sodium levels from baseline -Recent hospitalization for hyponatremia demonstrated he was functional between 126 and 138 -Received DDAVP 1 mcg x2; scheduled q8h for avoidance of overcorrection -BMP q4h -Tolerated PO 450mL free water -Monitor strict I's and O's : -Varela catheter in place -Approximately 3500mL out since admission, this number is slightly lower than true output as patient had 1 large volume incontinent event prior to Varela being placed in ED -Monitor strict I's and O's ENDO: -History of hypothyroidism: Recent TSH within normal limits -Continue levothyroxine HEME: -H&H stable ID: -No current signs or symptoms of infectious process Lines/IV Access: -PIV x2 Admission and Anticipated Discharge Date Admission Date: June 01, 2020 Supervising Physician Co-Signing Physician Notes Dr. Haddad was resident physician during care of patient. I separately evaluated patient for peralta portions of the history and the exam. I was present during the critical portion of medical decision making, and I discussed the case with the resident. I generally agree with the findings and plan. Patient was discussed in multidisciplinary rounds Continue DDAVP, he has reached essentially his maximum correction and a 24- hour., Patient will be allowed to take free water and limiting his diet to a low-sodium diet. Clinically he has improved from his initial presentation. He remains critically ill. Clinical update 1715: Patient sodium downtrending was given small amounts of water to drink, he has eaten both his meals. We will restrict any free water at this point and give a 500 mL normal saline bolus continue with every 4 hours sodium checks. Subjective Overnight had no acute events overnight, no seizure-like activity, no loss of consciousness. Would have intermittent episodes of somnolence overnight with associated hypoxia, continued to tolerate nasal cannula maintaining sats greater than 92%. Continued to produce large volumes of urine, total output since admission approximately 3400, however this is slightly lower measurement given a urinary incontinent event prior to Varela catheter being placed. Denies nausea, vomiting, abdominal pain, shortness of breath, numbness, weakness, tingling. Review of Systems Review of Systems: All systems reviewed & are unremarkable except as noted in Subjective Physical Exam Constitutional: WD/WN, vitals as above Eyes: PERRL, conjunctivae normal, anicteric sclerae ENMT: external ear and nose normal, oropharynx normal Neck: trachea midline, no thyromegaly Respiratory: normal respiratory effort, lungs clear to auscultation Cardiovascular: Rate/Rhythm: regular rate and regular rhythm Heart Sounds: normal S1 Vessels: no JVD Gastrointestinal (Abdomen): normal bowel sounds, soft, nontender, no hepatosplenomegaly Musculoskeletal: Extremities: no cyanosis and no clubbing Skin: no rashes, warm and dry Trauma: + laceration (above right eye (closed with dermabond and steristrip)) Neurologic: PERRL, EOMI, accommodation nl, no face palsy, no dysarthria Psychiatric: Orientation: alert and oriented x 3 Lymphatic: no cervical lymphadenopathy Results & Data Results & Data ([facility]) Vital Signs (Past 12 Hours) Vital Signs Temp Pulse Pulse Resp BP BP Pulse Ox 06/02/20 04:23 69 13 132/86 100 06/02/20 03:53 36.7 C 65 14 139/88 100 06/02/20 03:23 68 13 129/90 100 06/02/20 02:53 67 14 124/83 100 06/02/20 02:30 69 18 100 06/02/20 02:23 71 16 114/86 100 06/02/20 01:53 68 14 125/89 100 06/02/20 01:23 70 17 120/98 100 06/02/20 00:53 73 12 119/81 100 06/02/20 00:23 37.1 C 79 12 131/91 100 06/02/20 00:00 84 12 100 06/01/20 23:53 74 15 119/82 100 06/01/20 23:30 76 24 100 06/01/20 23:23 78 18 146/87 H 100 06/01/20 23:00 79 13 100 06/01/20 22:53 82 13 128/79 100 06/01/20 22:30 82 14 100 06/01/20 22:23 96 H 30 H 129/85 100 06/01/20 22:00 95 H 26 H 100 06/01/20 21:53 96 H 14 121/87 100 06/01/20 21:30 95 H 21 100 06/01/20 21:23 89 16 131/89 100 06/01/20 20:53 81 17 127/84 100 06/01/20 20:23 87 16 128/88 97 06/01/20 20:00 93 H 33 H 100 06/01/20 19:51 90 06/01/20 19:45 37.0 C 84 22 140/86 99 06/01/20 19:44 37 C 93 H 30 H 99 06/01/20 19:43 93 H 35 H 140/86 100 06/01/20 19:42 93 H 27 H 06/01/20 19:15 83 138/92 100 06/01/20 19:10 82 29 H 97 06/01/20 19:01 82 99 06/01/20 19:00 81 131/81 88 L 06/01/20 18:57 83 25 H 87 L 06/01/20 18:56 91 H 22 121/79 85 L 06/01/20 18:31 86 24 100 06/01/20 18:30 84 30 H 129/81 06/01/20 18:15 96 H 28 H 127/81 06/01/20 18:01 83 34 H 06/01/20 18:00 90 34 H 128/84 06/01/20 17:55 92 H 33 H 134/79 06/01/20 17:54 88 20 138/78 100 Laboratory Results 06/02/20 06/02/20 06/01/20 Range/Units 04:15 04:15 23:36 WBC 3.87 L (4.8-10.8) K/uL RBC 4.01 L (4.7-6.1) M/uL Hgb 12.3 L (14.0-18.0) g/dL Hct 34.2 L (42-52) % MCV 85.3 (80-100) fL MCH 30.7 (25-34) pg MCHC 36.0 (32-36) g/dL RDW Std Deviation 37.5 (36.4-46.3) fL RDW Coeff of Satish 12.0 (11.5-14.5) % Plt Count 285 (130-400) K/uL MPV 9.5 (7.4-10.4) fL Immature Gran % (Auto) 0.3 % Neut % (Auto) 54.0 % Lymph % (Auto) 27.1 % [place] % (Auto) 17.6 % Eos % (Auto) 1.0 % Baso % (Auto) 0.0 % Neut # (Auto) 2.09 (1.4-6.5) K/uL Lymph # (Auto) 1.05 L (1.2-3.4) K/uL [place] # (Auto) 0.68 H (0.11-0.59) K/uL Eos # (Auto) 0.04 (0-0.5) K/uL Baso # (Auto) 0.00 (0-0.2) K/uL Immature Gran # (Auto) 0.01 (0.00-0.02) K/uL VBG pH (7.36-7.41) VBG pCO2 (38-50) mmHg VBG pO2 mmHg VBG HCO3 mmol/L VBG O2 Saturation % VBG Base Excess mEq/L Barometric Pressure mm/Hg Sodium 121 L 121 L (136-145) mmol/L Potassium 3.9 3.8 (3.5-5.1) mmol/L Chloride 91 L 89 L (98-107) mmol/L Carbon Dioxide 21 23 (21-32) mmol/L Anion Gap 9.0 9.0 (3-11) BUN 3 L 2 L (7-18) mg/dl Creatinine 0.50 L 0.56 L (0.6-1.4) mg/dl Est Cr Clr Drug Dosing 198.7 177.4 ml/min Est GFR ( Amer) > 150.0 147.9 Est GFR (Non-Af Amer) 133.7 127.6 BUN/Creatinine Ratio 5.7 L 4.3 L (10-20) Glucose 80 95 (70-99) mg/dl Osmolality (280-300) mOsm/kg Calcium 8.4 L 8.8 (8.5-10.1) mg/dl Phosphorus 3.4 D (2.5-4.9) mg/dl Magnesium 2.0 (1.8-2.4) mg/dl Total Bilirubin (0.2-1) mg/dl AST (15-37) U/L ALT (12-78) U/L Alkaline Phosphatase (45-117) U/L Total Creatine Kinase 198 (39-308) U/L Total Protein (6.4-8.2) gm/dl Albumin (3.4-5.0) gm/dl Globulin (2.5-4.0) gm/dl Albumin/Globulin Ratio (0.9-2) Urine Color Urine Appearance (Clear) Urine pH (4.5-7.5) Ur Specific Jesse (1.000-1.030) Urine Protein (Negative) Urine Glucose (UA) (Negative) Urine Ketones (Negative) Urine Blood (Negative) Urine Nitrite (Negative) Urine Bilirubin (Negative) Urine Urobilinogen (Negative) Ur Leukocyte Esterase (Negative) Urine Osmolality (500-800) mOsm/kg Urine Sodium mmol/L Urine Potassium mmol/L Urine Chloride mmol/L Nasal Screen MRSA (PCR) (Negative) Salicylates (2.8-20) mg/dl Acetaminophen (10-30) ug/ml Ethyl Alcohol mg/dL (0-3) mg/dl 06/01/20 06/01/20 06/01/20 Range/Units 20:15 20:15 20:15 WBC (4.8-10.8) K/uL RBC (4.7-6.1) M/uL Hgb (14.0-18.0) g/dL Hct (42-52) % MCV (80-100) fL MCH (25-34) pg MCHC (32-36) g/dL RDW Std Deviation (36.4-46.3) fL RDW Coeff of Satish (11.5-14.5) % Plt Count (130-400) K/uL MPV (7.4-10.4) fL Immature Gran % (Auto) % Neut % (Auto) % Lymph % (Auto) % [place] % (Auto) % Eos % (Auto) % Baso % (Auto) % Neut # (Auto) (1.4-6.5) K/uL Lymph # (Auto) (1.2-3.4) K/uL [place] # (Auto) (0.11-0.59) K/uL Eos # (Auto) (0-0.5) K/uL Baso # (Auto) (0-0.2) K/uL Immature Gran # (Auto) (0.00-0.02) K/uL VBG pH (7.36-7.41) VBG pCO2 (38-50) mmHg VBG pO2 mmHg VBG HCO3 mmol/L VBG O2 Saturation % VBG Base Excess mEq/L Barometric Pressure mm/Hg Sodium (136-145) mmol/L Potassium (3.5-5.1) mmol/L Chloride (98-107) mmol/L Carbon Dioxide (21-32) mmol/L Anion Gap (3-11) BUN (7-18) mg/dl Creatinine (0.6-1.4) mg/dl Est Cr Clr Drug Dosing ml/min Est GFR ( Amer) Est GFR (Non-Af Amer) BUN/Creatinine Ratio (10-20) Glucose (70-99) mg/dl Osmolality (280-300) mOsm/kg Calcium (8.5-10.1) mg/dl Phosphorus (2.5-4.9) mg/dl Magnesium (1.8-2.4) mg/dl Total Bilirubin (0.2-1) mg/dl AST (15-37) U/L ALT (12-78) U/L Alkaline Phosphatase (45-117) U/L Total Creatine Kinase (39-308) U/L Total Protein (6.4-8.2) gm/dl Albumin (3.4-5.0) gm/dl Globulin (2.5-4.0) gm/dl Albumin/Globulin Ratio (0.9-2) Urine Color Yellow Urine Appearance Clear (Clear) Urine pH 7.5 (4.5-7.5) Ur Specific Jesse 1.004 (1.000-1.030) Urine Protein Negative (Negative) Urine Glucose (UA) Negative (Negative) Urine Ketones Negative (Negative) Urine Blood Negative (Negative) Urine Nitrite Negative (Negative) Urine Bilirubin Negative (Negative) Urine Urobilinogen Negative (Negative) Ur Leukocyte Esterase Negative (Negative) Urine Osmolality 96 L (500-800) mOsm/kg Urine Sodium 39 mmol/L Urine Potassium 5.6 mmol/L Urine Chloride 31 mmol/L Nasal Screen MRSA (PCR) (Negative) Salicylates (2.8-20) mg/dl Acetaminophen (10-30) ug/ml Ethyl Alcohol mg/dL (0-3) mg/dl 06/01/20 06/01/20 06/01/20 Range/Units 19:53 19:53 19:45 WBC (4.8-10.8) K/uL RBC (4.7-6.1) M/uL Hgb (14.0-18.0) g/dL Hct (42-52) % MCV (80-100) fL MCH (25-34) pg MCHC (32-36) g/dL RDW Std Deviation (36.4-46.3) fL RDW Coeff of Satish (11.5-14.5) % Plt Count (130-400) K/uL MPV (7.4-10.4) fL Immature Gran % (Auto) % Neut % (Auto) % Lymph % (Auto) % [place] % (Auto) % Eos % (Auto) % Baso % (Auto) % Neut # (Auto) (1.4-6.5) K/uL Lymph # (Auto) (1.2-3.4) K/uL [place] # (Auto) (0.11-0.59) K/uL Eos # (Auto) (0-0.5) K/uL Baso # (Auto) (0-0.2) K/uL Immature Gran # (Auto) (0.00-0.02) K/uL VBG pH 7.45 H (7.36-7.41) VBG pCO2 32 L (38-50) mmHg VBG pO2 35 mmHg VBG HCO3 22 mmol/L VBG O2 Saturation 66.5 % VBG Base Excess -1.8 mEq/L Barometric Pressure 726.3 mm/Hg Sodium 119 L* (136-145) mmol/L Potassium 3.7 (3.5-5.1) mmol/L Chloride 88 L (98-107) mmol/L Carbon Dioxide 21 (21-32) mmol/L Anion Gap 9.0 (3-11) BUN 3 L (7-18) mg/dl Creatinine 0.59 L (0.6-1.4) mg/dl Est Cr Clr Drug Dosing 168.4 ml/min Est GFR ( Amer) 144.7 Est GFR (Non-Af Amer) 124.9 BUN/Creatinine Ratio 4.8 L (10-20) Glucose 108 H (70-99) mg/dl Osmolality (280-300) mOsm/kg Calcium 8.9 (8.5-10.1) mg/dl Phosphorus (2.5-4.9) mg/dl Magnesium (1.8-2.4) mg/dl Total Bilirubin (0.2-1) mg/dl AST (15-37) U/L ALT (12-78) U/L Alkaline Phosphatase (45-117) U/L Total Creatine Kinase (39-308) U/L Total Protein (6.4-8.2) gm/dl Albumin (3.4-5.0) gm/dl Globulin (2.5-4.0) gm/dl Albumin/Globulin Ratio (0.9-2) Urine Color Urine Appearance (Clear) Urine pH (4.5-7.5) Ur Specific Jesse (1.000-1.030) Urine Protein (Negative) Urine Glucose (UA) (Negative) Urine Ketones (Negative) Urine Blood (Negative) Urine Nitrite (Negative) Urine Bilirubin (Negative) Urine Urobilinogen (Negative) Ur Leukocyte Esterase (Negative) Urine Osmolality (500-800) mOsm/kg Urine Sodium mmol/L Urine Potassium mmol/L Urine Chloride mmol/L Nasal Screen MRSA (PCR) Negative (Negative) Salicylates (2.8-20) mg/dl Acetaminophen (10-30) ug/ml Ethyl Alcohol mg/dL (0-3) mg/dl 06/01/20 06/01/20 06/01/20 Range/Units 18:11 16:44 16:44 WBC 5.75 (4.8-10.8) K/uL RBC 3.94 L (4.7-6.1) M/uL Hgb 12.2 L (14.0-18.0) g/dL Hct 33.4 L (42-52) % MCV 84.8 (80-100) fL MCH 31.0 (25-34) pg MCHC 36.5 H (32-36) g/dL RDW Std Deviation 36.5 (36.4-46.3) fL RDW Coeff of Satish 11.8 (11.5-14.5) % Plt Count 284 (130-400) K/uL MPV 9.5 (7.4-10.4) fL Immature Gran % (Auto) 0.5 % Neut % (Auto) 81.1 % Lymph % (Auto) 10.4 % [place] % (Auto) 7.8 % Eos % (Auto) 0.2 % Baso % (Auto) 0.0 % Neut # (Auto) 4.66 (1.4-6.5) K/uL Lymph # (Auto) 0.60 L (1.2-3.4) K/uL [place] # (Auto) 0.45 (0.11-0.59) K/uL Eos # (Auto) 0.01 (0-0.5) K/uL Baso # (Auto) 0.00 (0-0.2) K/uL Immature Gran # (Auto) 0.03 H (0.00-0.02) K/uL VBG pH (7.36-7.41) VBG pCO2 (38-50) mmHg VBG pO2 mmHg VBG HCO3 mmol/L VBG O2 Saturation % VBG Base Excess mEq/L Barometric Pressure mm/Hg Sodium (136-145) mmol/L Potassium (3.5-5.1) mmol/L Chloride (98-107) mmol/L Carbon Dioxide (21-32) mmol/L Anion Gap (3-11) BUN (7-18) mg/dl Creatinine (0.6-1.4) mg/dl Est Cr Clr Drug Dosing ml/min Est GFR ( Amer) Est GFR (Non-Af Amer) BUN/Creatinine Ratio (10-20) Glucose (70-99) mg/dl Osmolality 231 L* (280-300) mOsm/kg Calcium (8.5-10.1) mg/dl Phosphorus (2.5-4.9) mg/dl Magnesium (1.8-2.4) mg/dl Total Bilirubin (0.2-1) mg/dl AST (15-37) U/L ALT (12-78) U/L Alkaline Phosphatase (45-117) U/L Total Creatine Kinase (39-308) U/L Total Protein (6.4-8.2) gm/dl Albumin (3.4-5.0) gm/dl Globulin (2.5-4.0) gm/dl Albumin/Globulin Ratio (0.9-2) Urine Color Urine Appearance (Clear) Urine pH (4.5-7.5) Ur Specific Jesse (1.000-1.030) Urine Protein (Negative) Urine Glucose (UA) (Negative) Urine Ketones (Negative) Urine Blood (Negative) Urine Nitrite (Negative) Urine Bilirubin (Negative) Urine Urobilinogen (Negative) Ur Leukocyte Esterase (Negative) Urine Osmolality (500-800) mOsm/kg Urine Sodium mmol/L Urine Potassium mmol/L Urine Chloride mmol/L Nasal Screen MRSA (PCR) (Negative) Salicylates < 1.7 L (2.8-20) mg/dl Acetaminophen < 2 L (10-30) ug/ml Ethyl Alcohol mg/dL (0-3) mg/dl 06/01/20 06/01/20 Range/Units 16:44 16:44 WBC (4.8-10.8) K/uL RBC (4.7-6.1) M/uL Hgb (14.0-18.0) g/dL Hct (42-52) % MCV (80-100) fL MCH (25-34) pg MCHC (32-36) g/dL RDW Std Deviation (36.4-46.3) fL RDW Coeff of Satish (11.5-14.5) % Plt Count (130-400) K/uL MPV (7.4-10.4) fL Immature Gran % (Auto) % Neut % (Auto) % Lymph % (Auto) % [place] % (Auto) % Eos % (Auto) % Baso % (Auto) % Neut # (Auto) (1.4-6.5) K/uL Lymph # (Auto) (1.2-3.4) K/uL [place] # (Auto) (0.11-0.59) K/uL Eos # (Auto) (0-0.5) K/uL Baso # (Auto) (0-0.2) K/uL Immature Gran # (Auto) (0.00-0.02) K/uL VBG pH (7.36-7.41) VBG pCO2 (38-50) mmHg VBG pO2 mmHg VBG HCO3 mmol/L VBG O2 Saturation % VBG Base Excess mEq/L Barometric Pressure mm/Hg Sodium 114 L* (136-145) mmol/L Potassium 4.1 (3.5-5.1) mmol/L Chloride 81 L (98-107) mmol/L Carbon Dioxide 19 L (21-32) mmol/L Anion Gap 14.0 H (3-11) BUN 2 L (7-18) mg/dl Creatinine 0.63 (0.6-1.4) mg/dl Est Cr Clr Drug Dosing 175.2 ml/min Est GFR ( Amer) 140.9 Est GFR (Non-Af Amer) 121.5 BUN/Creatinine Ratio 3.9 L (10-20) Glucose 117 H (70-99) mg/dl Osmolality (280-300) mOsm/kg Calcium 8.5 (8.5-10.1) mg/dl Phosphorus 2.0 L (2.5-4.9) mg/dl Magnesium 1.4 L (1.8-2.4) mg/dl Total Bilirubin 0.6 (0.2-1) mg/dl AST 21 (15-37) U/L ALT 15 (12-78) U/L Alkaline Phosphatase 49 (45-117) U/L Total Creatine Kinase (39-308) U/L Total Protein 6.5 (6.4-8.2) gm/dl Albumin 3.7 (3.4-5.0) gm/dl Globulin 2.8 (2.5-4.0) gm/dl Albumin/Globulin Ratio 1.3 (0.9-2) Urine Color Urine Appearance (Clear) Urine pH (4.5-7.5) Ur Specific Jesse (1.000-1.030) Urine Protein (Negative) Urine Glucose (UA) (Negative) Urine Ketones (Negative) Urine Blood (Negative) Urine Nitrite (Negative) Urine Bilirubin (Negative) Urine Urobilinogen (Negative) Ur Leukocyte Esterase (Negative) Urine Osmolality (500-800) mOsm/kg Urine Sodium mmol/L Urine Potassium mmol/L Urine Chloride mmol/L Nasal Screen MRSA (PCR) (Negative) Salicylates (2.8-20) mg/dl Acetaminophen (10-30) ug/ml Ethyl Alcohol mg/dL < 3.0 (0-3) mg/dl Medications Administered Current Inpatient Medications Desmopressin Acetate 1 mcg/ (Sodium Chloride) 50.25 mls @ 100 mls/hr IV Q8H PREET Stop: 07/01/20 20:29 Last Infusion: 06/02/20 04:46 Dose: Infused Documented by: Miscellaneous ([facility] Protocol For Hyperglycemia) 1 ea N/A PRN PRN; Protocol PRN Reason: Hyperglycemia Protocol Stop: 06/03/20 19:50 Critical Care Time Critical Care Time: Yes Total Critical Care Time: 70 I have personally spent 70 minutes of critical care time in the direct management of this patient. This is a life/limb threatening event. This includes time spent evaluating patient, direct bedside care, chart review, placing orders, interpretation of diagnostic studies, discussion with co nsultants, patient, and/or family members regarding treatment decisions, as well as other required patient management activities. This time is exclusive of all separately billable procedures, and teaching time and separate from and in addition to any other critical care service time. Resident Activity Tracking Resident Involvement: Resident Care Provided Care Provided: Adult Hospital Medicine (Critical Care)
[2020-06-02] MEDS: LEVOTHYROXINE SODIUM 25 MCG TABLET PO SCH (08:00)
[2020-06-02 08:51] LABS: Calcium 8.7 mg/dl (8.5-10.1); Creatinine Clr Calc Pharmacy 162.9 ml/min; Est GFR (African American) 142.8; Est GFR (Non-African American) 123.2; Potassium 3.7 mmol/L (3.5-5.1)
--- NOTE | 2020-06-02 09:51 | Billing Data ---
Date of Service June 02, 2020 Coding Level of Care Code Critical Care 1st - mins
[2020-06-02] MEDS: ENOXAPARIN INJ 40 MG/0.4 ML SYR SQ SCH (11:16)
[2020-06-02 12:39] LABS: BUN Creatinine Ratio 5.7 (10-20); Calcium 8.4 mg/dl (8.5-10.1); Creatinine Clr Calc Pharmacy 160.3 ml/min; Est GFR (African American) 141.8; Est GFR (Non-African American) 122.4; Potassium 3.8 mmol/L (3.5-5.1)
[2020-06-02 16:46] LABS: BUN Creatinine Ratio 9.8 (10-20); Calcium 8.3 mg/dl (8.5-10.1); Creatinine Clr Calc Pharmacy 180.7 ml/min; Est GFR (Non-African American) 128.5; Potassium 3.4 mmol/L (3.5-5.1)
[2020-06-02] MEDS ORDERED: SODIUM CHLORIDE 0.9% 1000ML 500 ML IV ONE (16:55)
--- NOTE | 2020-06-02 17:14 | Hospitalist Progress Note ---
Date of Service June 02, 2020 Assessment & Plan (1) Hyponatremia: 40-year-old male with a past psych history concerning for schizophrenia and bipolar disorder currently incarcerated and [facility]. He was recently discharged in the hospital and has been in the locked unit following the discharge. He was found down in his cell after presumed syncopal episode. Upon arrival in the emergency department he had a serum sodium of 114, osmolarity of 231, and was confused. [employer] was consulted, and admitted to the ICU for observation in the setting of severe hyponatremia with intermittent somnolent episodes and concern for his ability to protect his airway. Hyponatremia: Electrolytes continue to improve, admission sodium was 114, up to 121 this morning and now back in the 116. 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 Per review of prior labs, this appears to be an acute exacerbation of her chronic process. -BMP every 4 hours, monitor strict I's and O's, -Care per ICU Psych: Patient has a history of being on psych meds, reported stopping them ap proximately 3 years ago. Per history of the guards confirm that he is stopped taking his psych meds. Based upon the questions and responses noted in the history there is definitely a component of psychiatric disease in this individual likely schizophrenia or bipolar with psychiatric features. To that extent I strongly recommend the patient follow-up with psych once he is more conscious. In the interim I think it would be prudent when able to resume his home psych meds. -Resume psych meds when able Hypothyroid History of, TSH was within normal limits during last admission -Continue levothyroxine Transient apnea: Etiology unclear, this could be related to his current hyponatremia versus a chronic process. To consider further work-up once stable. Electrolyte abnormalities: -BMPs every 4 hours, replete electrolytes as indicated Otherwise care per ICU team FENa: low sodium Code Status: Full code DVT PPX: SCDs PT/OT: Not indicated Dispo: ICU Omar Hendricks MD PGY 2, FCM This chart was completed utilizing [employer] voice recognition software. Grammatical errors, random word insertions, pronoun errors, and in complete s entences are an occasional consequence of the system. Any questions or concerns about the content, text, or information contained within the body of this dictation should be addressed directly to the physician for clarification. Admission and Anticipated Discharge Date Admission Date: June 01, 2020 Supervising Physician Co-Signing Physician Notes I personally examined the patient and verified all peralta points of history and exam, discussed case, and agree with decision making with Dr Hendricks. feeling better, eating well. acting normal per him/guards vitals noted nad heent nc at mmm breathing unlabored no accessory muscles good effort. hyponatremia - very low, but fortunately mentally appears intact. continue current care / per ICU care Subjective No acute events overnight, patient is doing well, monitored in the ICU. Review of Systems Review of Systems: All systems reviewed & are unremarkable except as noted in HPI & below Physical Exam Physical Exam: General: Generally no acute distress HEENT: Normocephalic atraumatic Neck: Trachea midline Visual inspection Cardiac: See attending attestation Respiratory: See attending attestation GI: Soft nontender nondistended MSK: Moves all extremities Neuro: Alert Psych: Thought process is abnormal Results & Data Results & Data ([facility]) Vital Signs (Past 12 Hours) Vital Signs Pulse Resp BP Pulse Ox 06/02/20 16:00 73 06/02/20 13:30 73 17 99 06/02/20 13:12 72 17 136/96 100 06/02/20 13:00 75 15 100 06/02/20 12:30 82 13 100 06/02/20 12:11 80 20 153/101 H 100 06/02/20 12:00 78 18 100 06/02/20 11:30 74 18 100 06/02/20 11:23 73 14 143/98 H 100 06/02/20 11:00 74 17 100 06/02/20 10:54 79 17 145/104 H 100 06/02/20 10:30 70 16 100 06/02/20 10:23 74 16 147/100 H 100 06/02/20 10:00 72 18 100 06/02/20 09:54 77 17 145/98 H 100 06/02/20 09:30 73 19 100 06/02/20 09:24 70 14 148/104 H 100 06/02/20 09:00 75 14 100 06/02/20 08:53 77 18 149/95 H 100 06/02/20 08:30 76 19 99 06/02/20 08:24 73 16 123/88 100 06/02/20 08:00 84 19 98 06/02/20 07:54 76 14 135/81 99 06/02/20 07:30 75 17 100 06/02/20 07:23 70 15 145/98 H 100 06/02/20 07:00 75 19 100 06/02/20 06:53 73 18 138/97 100 06/02/20 06:30 69 14 100 06/02/20 06:24 72 21 06/02/20 06:23 72 27 H 139/97 06/02/20 06:00 75 18 06/02/20 05:53 68 16 138/97 06/02/20 05:24 72 17 121/86 99 Laboratory Results 06/02/20 06/02/20 06/02/20 Range/Units 15:51 15:24 11:51 WBC (4.8-10.8) K/uL RBC (4.7-6.1) M/uL Hgb (14.0-18.0) g/dL Hct (42-52) % MCV (80-100) fL MCH (25-34) pg MCHC (32-36) g/dL RDW Std Deviation (36.4-46.3) fL RDW Coeff of Satish (11.5-14.5) % Plt Count (130-400) K/uL MPV (7.4-10.4) fL Immature Gran % (Auto) % Neut % (Auto) % Lymph % (Auto) % [place] % (Auto) % Eos % (Auto) % Baso % (Auto) % Neut # (Auto) (1.4-6.5) K/uL Lymph # (Auto) (1.2-3.4) K/uL [place] # (Auto) (0.11-0.59) K/uL Eos # (Auto) (0-0.5) K/uL Baso # (Auto) (0-0.2) K/uL Immature Gran # (Auto) (0.00-0.02) K/uL VBG pH (7.36-7.41) VBG pCO2 (38-50) mmHg VBG pO2 mmHg VBG HCO3 mmol/L VBG O2 Saturation % VBG Base Excess mEq/L Barometric Pressure mm/Hg Sodium 116 L* 118 L* (136-145) mmol/L Potassium 3.4 L 3.8 (3.5-5.1) mmol/L Chloride 84 L 85 L (98-107) mmol/L Carbon Dioxide 23 23 (21-32) mmol/L Anion Gap 9.0 10.0 (3-11) BUN 5 L 4 L (7-18) mg/dl Creatinine 0.55 L 0.62 (0.6-1.4) mg/dl Est Cr Clr Drug Dosing 180.7 160.3 ml/min Est GFR ( Amer) 149.0 141.8 Est GFR (Non-Af Amer) 128.5 122.4 BUN/Creatinine Ratio 9.8 L 5.7 L (10-20) Glucose 92 87 (70-99) mg/dl POC Glucose 139 H (70-99) mg/dl Osmolality (280-300) mOsm/kg Calcium 8.3 L 8.4 L (8.5-10.1) mg/dl Phosphorus (2.5-4.9) mg/dl Magnesium (1.8-2.4) mg/dl Total Bilirubin (0.2-1) mg/dl AST (15-37) U/L ALT (12-78) U/L Alkaline Phosphatase (45-117) U/L Total Creatine Kinase (39-308) U/L Total Protein (6.4-8.2) gm/dl Albumin (3.4-5.0) gm/dl Globulin (2.5-4.0) gm/dl Albumin/Globulin Ratio (0.9-2) Urine Color Urine Appearance (Clear) Urine pH (4.5-7.5) Ur Specific [place] (1.000-1.030) Urine Protein (Negative) Urine Glucose (UA) (Negative) Urine Ketones (Negative) Urine Blood (Negative) Urine Nitrite (Negative) Urine Bilirubin (Negative) Urine Urobilinogen (Negative) Ur Leukocyte Esterase (Negative) Urine Osmolality (500-800) mOsm/kg Urine Sodium mmol/L Urine Potassium mmol/L Urine Chloride mmol/L Nasal Screen MRSA (PCR) (Negative) Salicylates (2.8-20) mg/dl Acetaminophen (10-30) ug/ml Ethyl Alcohol mg/dL (0-3) mg/dl 06/02/20 06/02/20 06/02/20 Range/Units 11:00 08:08 04:15 WBC 3.87 L (4.8-10.8) K/uL RBC 4.01 L (4.7-6.1) M/uL Hgb 12.3 L (14.0-18.0) g/dL Hct 34.2 L (42-52) % MCV 85.3 (80-100) fL MCH 30.7 (25-34) pg MCHC 36.0 (32-36) g/dL RDW Std Deviation 37.5 (36.4-46.3) fL RDW Coeff of Satish 12.0 (11.5-14.5) % Plt Count 285 (130-400) K/uL MPV 9.5 (7.4-10.4) fL Immature Gran % (Auto) 0.3 % Neut % (Auto) 54.0 % Lymph % (Auto) 27.1 % [place] % (Auto) 17.6 % Eos % (Auto) 1.0 % Baso % (Auto) 0.0 % Neut # (Auto) 2.09 (1.4-6.5) K/uL Lymph # (Auto) 1.05 L (1.2-3.4) K/uL [place] # (Auto) 0.68 H (0.11-0.59) K/uL Eos # (Auto) 0.04 (0-0.5) K/uL Baso # (Auto) 0.00 (0-0.2) K/uL Immature Gran # (Auto) 0.01 (0.00-0.02) K/uL VBG pH (7.36-7.41) VBG pCO2 (38-50) mmHg VBG pO2 mmHg VBG HCO3 mmol/L VBG O2 Saturation % VBG Base Excess mEq/L Barometric Pressure mm/Hg Sodium 121 L (136-145) mmol/L Potassium 3.7 (3.5-5.1) mmol/L Chloride 88 L (98-107) mmol/L Carbon Dioxide 21 (21-32) mmol/L Anion Gap 12.0 H (3-11) BUN 2 L (7-18) mg/dl Creatinine 0.61 (0.6-1.4) mg/dl Est Cr Clr Drug Dosing 162.9 ml/min Est GFR ( Amer) 142.8 Est GFR (Non-Af Amer) 123.2 BUN/Creatinine Ratio 4.0 L (10-20) Glucose 105 H (70-99) mg/dl POC Glucose 111 H (70-99) mg/dl Osmolality (280-300) mOsm/kg Calcium 8.7 (8.5-10.1) mg/dl Phosphorus (2.5-4.9) mg/dl Magnesium (1.8-2.4) mg/dl Total Bilirubin (0.2-1) mg/dl AST (15-37) U/L ALT (12-78) U/L Alkaline Phosphatase (45-117) U/L Total Creatine Kinase (39-308) U/L Total Protein (6.4-8.2) gm/dl Albumin (3.4-5.0) gm/dl Globulin (2.5-4.0) gm/dl Albumin/Globulin Ratio (0.9-2) Urine Color Urine Appearance (Clear) Urine pH (4.5-7.5) Ur Specific [place] (1.000-1.030) Urine Protein (Negative) Urine Glucose (UA) (Negative) Urine Ketones (Negative) Urine Blood (Negative) Urine Nitrite (Negative) Urine Bilirubin (Negative) Urine Urobilinogen (Negative) Ur Leukocyte Esterase (Negative) Urine Osmolality (500-800) mOsm/kg Urine Sodium mmol/L Urine Potassium mmol/L Urine Chloride mmol/L Nasal Screen MRSA (PCR) (Negative) Salicylates (2.8-20) mg/dl Acetaminophen (10-30) ug/ml Ethyl Alcohol mg/dL (0-3) mg/dl 06/02/20 06/01/20 06/01/20 Range/Units 04:15 23:36 20:15 WBC (4.8-10.8) K/uL RBC (4.7-6.1) M/uL Hgb (14.0-18.0) g/dL Hct (42-52) % MCV (80-100) fL MCH (25-34) pg MCHC (32-36) g/dL RDW Std Deviation (36.4-46.3) fL RDW Coeff of Satish (11.5-14.5) % Plt Count (130-400) K/uL MPV (7.4-10.4) fL Immature Gran % (Auto) % Neut % (Auto) % Lymph % (Auto) % [place] % (Auto) % Eos % (Auto) % Baso % (Auto) % Neut # (Auto) (1.4-6.5) K/uL Lymph # (Auto) (1.2-3.4) K/uL [place] # (Auto) (0.11-0.59) K/uL Eos # (Auto) (0-0.5) K/uL Baso # (Auto) (0-0.2) K/uL Immature Gran # (Auto) (0.00-0.02) K/uL VBG pH (7.36-7.41) VBG pCO2 (38-50) mmHg VBG pO2 mmHg VBG HCO3 mmol/L VBG O2 Saturation % VBG Base Excess mEq/L Barometric Pressure mm/Hg Sodium 121 L 121 L (136-145) mmol/L Potassium 3.9 3.8 (3.5-5.1) mmol/L Chloride 91 L 89 L (98-107) mmol/L Carbon Dioxide 21 23 (21-32) mmol/L Anion Gap 9.0 9.0 (3-11) BUN 3 L 2 L (7-18) mg/dl Creatinine 0.50 L 0.56 L (0.6-1.4) mg/dl Est Cr Clr Drug Dosing 198.7 177.4 ml/min Est GFR ( Amer) > 150.0 147.9 Est GFR (Non-Af Amer) 133.7 127.6 BUN/Creatinine Ratio 5.7 L 4.3 L (10-20) Glucose 80 95 (70-99) mg/dl POC Glucose (70-99) mg/dl Osmolality (280-300) mOsm/kg Calcium 8.4 L 8.8 (8.5-10.1) mg/dl Phosphorus 3.4 D (2.5-4.9) mg/dl Magnesium 2.0 (1.8-2.4) mg/dl Total Bilirubin (0.2-1) mg/dl AST (15-37) U/L ALT (12-78) U/L Alkaline Phosphatase (45-117) U/L Total Creatine Kinase 198 (39-308) U/L Total Protein (6.4-8.2) gm/dl Albumin (3.4-5.0) gm/dl Globulin (2.5-4.0) gm/dl Albumin/Globulin Ratio (0.9-2) Urine Color Urine Appearance (Clear) Urine pH (4.5-7.5) Ur Specific [place] (1.000-1.030) Urine Protein (Negative) Urine Glucose (UA) (Negative) Urine Ketones (Negative) Urine Blood (Negative) Urine Nitrite (Negative) Urine Bilirubin (Negative) Urine Urobilinogen (Negative) Ur Leukocyte Esterase (Negative) Urine Osmolality (500-800) mOsm/kg Urine Sodium 39 mmol/L Urine Potassium 5.6 mmol/L Urine Chloride 31 mmol/L Nasal Screen MRSA (PCR) (Negative) Salicylates (2.8-20) mg/dl Acetaminophen (10-30) ug/ml Ethyl Alcohol mg/dL (0-3) mg/dl 06/01/20 06/01/20 06/01/20 Range/Units 20:15 20:15 19:53 WBC (4.8-10.8) K/uL RBC (4.7-6.1) M/uL Hgb (14.0-18.0) g/dL Hct (42-52) % MCV (80-100) fL MCH (25-34) pg MCHC (32-36) g/dL RDW Std Deviation (36.4-46.3) fL RDW Coeff of Satish (11.5-14.5) % Plt Count (130-400) K/uL MPV (7.4-10.4) fL Immature Gran % (Auto) % Neut % (Auto) % Lymph % (Auto) % [place] % (Auto) % Eos % (Auto) % Baso % (Auto) % Neut # (Auto) (1.4-6.5) K/uL Lymph # (Auto) (1.2-3.4) K/uL [place] # (Auto) (0.11-0.59) K/uL Eos # (Auto) (0-0.5) K/uL Baso # (Auto) (0-0.2) K/uL Immature Gran # (Auto) (0.00-0.02) K/uL VBG pH (7.36-7.41) VBG pCO2 (38-50) mmHg VBG pO2 mmHg VBG HCO3 mmol/L VBG O2 Saturation % VBG Base Excess mEq/L Barometric Pressure mm/Hg Sodium 119 L* (136-145) mmol/L Potassium 3.7 (3.5-5.1) mmol/L Chloride 88 L (98-107) mmol/L Carbon Dioxide 21 (21-32) mmol/L Anion Gap 9.0 (3-11) BUN 3 L (7-18) mg/dl Creatinine 0.59 L (0.6-1.4) mg/dl Est Cr Clr Drug Dosing 168.4 ml/min Est GFR ( Amer) 144.7 Est GFR (Non-Af Amer) 124.9 BUN/Creatinine Ratio 4.8 L (10-20) Glucose 108 H (70-99) mg/dl POC Glucose (70-99) mg/dl Osmolality (280-300) mOsm/kg Calcium 8.9 (8.5-10.1) mg/dl Phosphorus (2.5-4.9) mg/dl Magnesium (1.8-2.4) mg/dl Total Bilirubin (0.2-1) mg/dl AST (15-37) U/L ALT (12-78) U/L Alkaline Phosphatase (45-117) U/L Total Creatine Kinase (39-308) U/L Total Protein (6.4-8.2) gm/dl Albumin (3.4-5.0) gm/dl Globulin (2.5-4.0) gm/dl Albumin/Globulin Ratio (0.9-2) Urine Color Yellow Urine Appearance Clear (Clear) Urine pH 7.5 (4.5-7.5) Ur Specific [place] 1.004 (1.000-1.030) Urine Protein Negative (Negative) Urine Glucose (UA) Negative (Negative) Urine Ketones Negative (Negative) Urine Blood Negative (Negative) Urine Nitrite Negative (Negative) Urine Bilirubin Negative (Negative) Urine Urobilinogen Negative (Negative) Ur Leukocyte Esterase Negative (Negative) Urine Osmolality 96 L (500-800) mOsm/kg Urine Sodium mmol/L Urine Potassium mmol/L Urine Chloride mmol/L Nasal Screen MRSA (PCR) (Negative) Salicylates (2.8-20) mg/dl Acetaminophen (10-30) ug/ml Ethyl Alcohol mg/dL (0-3) mg/dl 06/01/20 06/01/20 06/01/20 Range/Units 19:53 19:45 18:11 WBC (4.8-10.8) K/uL RBC (4.7-6.1) M/uL Hgb (14.0-18.0) g/dL Hct (42-52) % MCV (80-100) fL MCH (25-34) pg MCHC (32-36) g/dL RDW Std Deviation (36.4-46.3) fL RDW Coeff of Satish (11.5-14.5) % Plt Count (130-400) K/uL MPV (7.4-10.4) fL Immature Gran % (Auto) % Neut % (Auto) % Lymph % (Auto) % [place] % (Auto) % Eos % (Auto) % Baso % (Auto) % Neut # (Auto) (1.4-6.5) K/uL Lymph # (Auto) (1.2-3.4) K/uL [place] # (Auto) (0.11-0.59) K/uL Eos # (Auto) (0-0.5) K/uL Baso # (Auto) (0-0.2) K/uL Immature Gran # (Auto) (0.00-0.02) K/uL VBG pH 7.45 H (7.36-7.41) VBG pCO2 32 L (38-50) mmHg VBG pO2 35 mmHg VBG HCO3 22 mmol/L VBG O2 Saturation 66.5 % VBG Base Excess -1.8 mEq/L Barometric Pressure 726.3 mm/Hg Sodium (136-145) mmol/L Potassium (3.5-5.1) mmol/L Chloride (98-107) mmol/L Carbon Dioxide (21-32) mmol/L Anion Gap (3-11) BUN (7-18) mg/dl Creatinine (0.6-1.4) mg/dl Est Cr Clr Drug Dosing ml/min Est GFR ( Amer) Est GFR (Non-Af Amer) BUN/Creatinine Ratio (10-20) Glucose (70-99) mg/dl POC Glucose (70-99) mg/dl Osmolality 231 L* (280-300) mOsm/kg Calcium (8.5-10.1) mg/dl Phosphorus (2.5-4.9) mg/dl Magnesium (1.8-2.4) mg/dl Total Bilirubin (0.2-1) mg/dl AST (15-37) U/L ALT (12-78) U/L Alkaline Phosphatase (45-117) U/L Total Creatine Kinase (39-308) U/L Total Protein (6.4-8.2) gm/dl Albumin (3.4-5.0) gm/dl Globulin (2.5-4.0) gm/dl Albumin/Globulin Ratio (0.9-2) Urine Color Urine Appearance (Clear) Urine pH (4.5-7.5) Ur Specific [place] (1.000-1.030) Urine Protein (Negative) Urine Glucose (UA) (Negative) Urine Ketones (Negative) Urine Blood (Negative) Urine Nitrite (Negative) Urine Bilirubin (Negative) Urine Urobilinogen (Negative) Ur Leukocyte Esterase (Negative) Urine Osmolality (500-800) mOsm/kg Urine Sodium mmol/L Urine Potassium mmol/L Urine Chloride mmol/L Nasal Screen MRSA (PCR) Negative (Negative) Salicylates (2.8-20) mg/dl Acetaminophen (10-30) ug/ml Ethyl Alcohol mg/dL (0-3) mg/dl 06/01/20 06/01/20 06/01/20 Range/Units 16:44 16:44 16:44 WBC 5.75 (4.8-10.8) K/uL RBC 3.94 L (4.7-6.1) M/uL Hgb 12.2 L (14.0-18.0) g/dL Hct 33.4 L (42-52) % MCV 84.8 (80-100) fL MCH 31.0 (25-34) pg MCHC 36.5 H (32-36) g/dL RDW Std Deviation 36.5 (36.4-46.3) fL RDW Coeff of Satish 11.8 (11.5-14.5) % Plt Count 284 (130-400) K/uL MPV 9.5 (7.4-10.4) fL Immature Gran % (Auto) 0.5 % Neut % (Auto) 81.1 % Lymph % (Auto) 10.4 % [place] % (Auto) 7.8 % Eos % (Auto) 0.2 % Baso % (Auto) 0.0 % Neut # (Auto) 4.66 (1.4-6.5) K/uL Lymph # (Auto) 0.60 L (1.2-3.4) K/uL [place] # (Auto) 0.45 (0.11-0.59) K/uL Eos # (Auto) 0.01 (0-0.5) K/uL Baso # (Auto) 0.00 (0-0.2) K/uL Immature Gran # (Auto) 0.03 H (0.00-0.02) K/uL VBG pH (7.36-7.41) VBG pCO2 (38-50) mmHg VBG pO2 mmHg VBG HCO3 mmol/L VBG O2 Saturation % VBG Base Excess mEq/L Barometric Pressure mm/Hg Sodium (136-145) mmol/L Potassium (3.5-5.1) mmol/L Chloride (98-107) mmol/L Carbon Dioxide (21-32) mmol/L Anion Gap (3-11) BUN (7-18) mg/dl Creatinine (0.6-1.4) mg/dl Est Cr Clr Drug Dosing ml/min Est GFR ( Amer) Est GFR (Non-Af Amer) BUN/Creatinine Ratio (10-20) Glucose (70-99) mg/dl POC Glucose (70-99) mg/dl Osmolality (280-300) mOsm/kg Calcium (8.5-10.1) mg/dl Phosphorus (2.5-4.9) mg/dl Magnesium (1.8-2.4) mg/dl Total Bilirubin (0.2-1) mg/dl AST (15-37) U/L ALT (12-78) U/L Alkaline Phosphatase (45-117) U/L Total Creatine Kinase (39-308) U/L Total Protein (6.4-8.2) gm/dl Albumin (3.4-5.0) gm/dl Globulin (2.5-4.0) gm/dl Albumin/Globulin Ratio (0.9-2) Urine Color Urine Appearance (Clear) Urine pH (4.5-7.5) Ur Specific [place] (1.000-1.030) Urine Protein (Negative) Urine Glucose (UA) (Negative) Urine Ketones (Negative) Urine Blood (Negative) Urine Nitrite (Negative) Urine Bilirubin (Negative) Urine Urobilinogen (Negative) Ur Leukocyte Esterase (Negative) Urine Osmolality (500-800) mOsm/kg Urine Sodium mmol/L Urine Potassium mmol/L Urine Chloride mmol/L Nasal Screen MRSA (PCR) (Negative) Salicylates < 1.7 L (2.8-20) mg/dl Acetaminophen < 2 L (10-30) ug/ml Ethyl Alcohol mg/dL < 3.0 (0-3) mg/dl 06/01/20 Range/Units 16:44 WBC (4.8-10.8) K/uL RBC (4.7-6.1) M/uL Hgb (14.0-18.0) g/dL Hct (42-52) % MCV (80-100) fL MCH (25-34) pg MCHC (32-36) g/dL RDW Std Deviation (36.4-46.3) fL RDW Coeff of Satish (11.5-14.5) % Plt Count (130-400) K/uL MPV (7.4-10.4) fL Immature Gran % (Auto) % Neut % (Auto) % Lymph % (Auto) % [place] % (Auto) % Eos % (Auto) % Baso % (Auto) % Neut # (Auto) (1.4-6.5) K/uL Lymph # (Auto) (1.2-3.4) K/uL [place] # (Auto) (0.11-0.59) K/uL Eos # (Auto) (0-0.5) K/uL Baso # (Auto) (0-0.2) K/uL Immature Gran # (Auto) (0.00-0.02) K/uL VBG pH (7.36-7.41) VBG pCO2 (38-50) mmHg VBG pO2 mmHg VBG HCO3 mmol/L VBG O2 Saturation % VBG Base Excess mEq/L Barometric Pressure mm/Hg Sodium 114 L* (136-145) mmol/L Potassium 4.1 (3.5-5.1) mmol/L Chloride 81 L (98-107) mmol/L Carbon Dioxide 19 L (21-32) mmol/L Anion Gap 14.0 H (3-11) BUN 2 L (7-18) mg/dl Creatinine 0.63 (0.6-1.4) mg/dl Est Cr Clr Drug Dosing 175.2 ml/min Est GFR ( Amer) 140.9 Est GFR (Non-Af Amer) 121.5 BUN/Creatinine Ratio 3.9 L (10-20) Glucose 117 H (70-99) mg/dl POC Glucose (70-99) mg/dl Osmolality (280-300) mOsm/kg Calcium 8.5 (8.5-10.1) mg/dl Phosphorus 2.0 L (2.5-4.9) mg/dl Magnesium 1.4 L (1.8-2.4) mg/dl Total Bilirubin 0.6 (0.2-1) mg/dl AST 21 (15-37) U/L ALT 15 (12-78) U/L Alkaline Phosphatase 49 (45-117) U/L Total Creatine Kinase (39-308) U/L Total Protein 6.5 (6.4-8.2) gm/dl Albumin 3.7 (3.4-5.0) gm/dl Globulin 2.8 (2.5-4.0) gm/dl Albumin/Globulin Ratio 1.3 (0.9-2) Urine Color Urine Appearance (Clear) Urine pH (4.5-7.5) Ur Specific [place] (1.000-1.030) Urine Protein (Negative) Urine Glucose (UA) (Negative) Urine Ketones (Negative) Urine Blood (Negative) Urine Nitrite (Negative) Urine Bilirubin (Negative) Urine Urobilinogen (Negative) Ur Leukocyte Esterase (Negative) Urine Osmolality (500-800) mOsm/kg Urine Sodium mmol/L Urine Potassium mmol/L Urine Chloride mmol/L Nasal Screen MRSA (PCR) (Negative) Salicylates (2.8-20) mg/dl Acetaminophen (10-30) ug/ml Ethyl Alcohol mg/dL (0-3) mg/dl Medications Administered Current Inpatient Medications Enoxaparin Sodium (Enoxaparin Inj 40 Mg/0.4 Ml Syr) 40 mg SQ QAM PREET Stop: 07/02/20 10:14 Last Admin: 06/02/20 11:16 Dose: 40 mg Documented by: Desmopressin Acetate 1 mcg/ (Sodium Chloride) 50.25 mls @ 100 mls/hr IV Q8H PREET Stop: 07/01/20 20:29 Last Infusion: 06/02/20 11:54 Dose: Infused Documented by: Sodium Chloride (Nss 1000ml) 500 mls @ 999 mls/hr IV .Q31M ONE Stop: 06/02/20 17:25 Last Admin: 06/02/20 16:58 Dose: 999 mls/hr Documented by: Levothyroxine Sodium (Levothyroxine Sodium 25 Mcg Tablet) 25 mcg PO DAILYBB PREET Stop: 07/02/20 07:44 Last Admin: 06/02/20 08:00 Dose: 25 mcg Documented by: Miscellaneous (Icu Protocol For Hyperglycemia) 1 ea N/A PRN PRN; Protocol PRN Reason: Hyperglycemia Protocol Stop: 06/03/20 19:50 Resident Activity Tracking Resident Involvement: Resident Care Provided Care Provided: Adult Hospital Medicine
--- NOTE | 2020-06-02 19:10 | Billing Data ---
Date of Service June 02, 2020 Coding Level of Care Code 87866 Subseq Hosp Care Lvl 1
[2020-06-02 23:07] LABS: BUN Creatinine Ratio 8.8 (10-20); Calcium 8.5 mg/dl (8.5-10.1); Creatinine Clr Calc Pharmacy 160.3 ml/min; Est GFR (African American) 141.8; Est GFR (Non-African American) 122.4; Potassium 3.7 mmol/L (3.5-5.1)
[2020-06-03 02:55] LABS: Blood Urea Nitrogen 5 mg/dl (7-18); Calcium 8.4 mg/dl (8.5-10.1); Carbon Dioxide 23 mmol/L (21-32); Chloride 85 mmol/L (98-107); Est GFR (African American) > 150.0; Est GFR (Non-African American) 138.3; Glucose 85 mg/dl (70-99); Potassium 3.6 mmol/L (3.5-5.1); Sodium 118 mmol/L (136-145)
[2020-06-03] MEDS: DESMOPRESSIN ACETATE 1 MCG in SODIUM CHLORIDE 0.9% 50 ML IV SCH (04:38)
--- NOTE | 2020-06-03 05:40 | Critical Care Progress Note ---
Date of Service June 03, 2020 Assessment & Plan (1) Hyponatremia: Reason Critically Ill: Patient is a 40y/o male with possible history of schizophrenia, bipolar disorder; reported to the hospital from [facility], where he was in a locked unit following recent discharge from hospital. Was found down within his cell, after possible syncopal event. In the emergency department patient was found to have a sodium level of 114, with a serum osmolality of 231, with intermittent confusion and inability to provide consistent story. Neuro: -CAM ICU negative -CT head 06/01 demonstrated negative for acute intracranial findings -CT C-spine 06/01 demonstrated negative for acute fracture or traumatic subluxation of C-spine Cardiac/Vascular: -No history of hypertension, MIs -EKG 06/01 demonstrated QTC 457, peaked T waves, no ST segment changes -continue to monitor on telemetry Respiratory: -No previous history of respiratory disease -Maintaining saturations overnight without supplemental oxygen support -Continue to monitor on continuous pulse oximetry GI/Nutrition: -Regular diet, fluid restriction 2500 mL -Monitor strict I's and O's Renal/Lytes: -Admission Na 114, serum osmolality 231, urine osmolality 96, urine sodium 39, urine potassium 5.6 -This AM 118 -Reportedly resides at lower sodium levels from baseline -Recent hospitalization for hyponatremia demonstrated he was functional between 126 and 138 -DDAVP q12h for avoidance of overcorrection -BMP q6h -Monitor strict I's and O's : -Varela catheter in place -Approximately 2300 mL overnight -Monitor strict I's and O's ENDO: -History of hypothyroidism: Recent TSH within normal limits -Continue levothyroxine HEME: -H&H stable ID: -No current signs or symptoms of infectious process -No antibiotics Lines/IV Access: -PIV x2 DVT prophylaxis: -Lovenox Admission and Anticipated Discharge Date Admission Date: June 01, 2020 Supervising Physician Co-Signing Physician Notes Dr. Haddad was resident physician during care of patient. I separately evaluated patient for peralta portions of the history and the exam. I was present during the critical portion of medical decision making, and I discussed the case with the resident. I generally agree with the findings and plan. Liberalizing fluid and diet extending interval for DDAVP. Patient alert and oriented without seizure-like activity, stable for downgrade out of ICU. I discussed this with the hospitalist group and they are willing to accept the patient. Subjective Overnight had no acute events; continues to have limited enfolded on the preceding events potentially leading to current hyponatremia and admission. Denies nausea, vomiting, abdominal pain, shortness of breath, numbness, weakness, tingling, loss of consciousness, changes in vision, lightheadedness. Review of Systems Review of Systems: All systems reviewed & are unremarkable except as noted in Subjective Physical Exam Constitutional: WD/WN, vitals as above Eyes: PERRL, conjunctivae normal, anicteric sclerae ENMT: external ear and nose normal, oropharynx normal Neck: trachea midline, no thyromegaly Respiratory: normal respiratory effort, lungs clear to auscultation Cardiovascular: Rate/Rhythm: regular rate and regular rhythm Heart Sounds: normal S1 Vessels: no JVD Gastrointestinal (Abdomen): normal bowel sounds, soft, nontender, no hepatosplenomegaly Musculoskeletal: Extremities: no cyanosis and no clubbing Skin: no rashes, warm and dry Trauma: + laceration (above right eye (closed with dermabond and steristrip)) Neurologic: PERRL, EOMI, accommodation nl, no face palsy, no dysarthria Psychiatric: Orientation: alert and oriented x 3 Lymphatic: no cervical lymphadenopathy Results & Data Results & Data ([facility]) Vital Signs (Past 12 Hours) Vital Signs Temp Pulse Resp BP Pulse Ox 06/03/20 05:12 67 13 119/104 H 99 06/03/20 04:12 37.0 C 70 16 122/78 98 06/03/20 02:11 60 12 103/72 98 06/03/20 01:11 61 14 103/81 98 06/03/20 00:12 36.8 C 62 17 143/91 H 99 06/02/20 23:23 74 15 143/104 H 98 06/02/20 22:12 65 16 124/90 99 06/02/20 21:11 71 16 120/86 98 06/02/20 21:00 70 15 99 06/02/20 20:12 37.0 C 68 16 120/91 98 06/02/20 19:12 74 15 123/87 99 06/02/20 18:00 71 17 98 Laboratory Results 06/03/20 06/03/20 06/02/20 Range/Units 06:14 02:18 22:33 Sodium Pending 118 L* 118 L* (136-145) mmol/L Potassium Pending 3.6 3.7 (3.5-5.1) mmol/L Chloride Pending 85 L 85 L (98-107) mmol/L Carbon Dioxide Pending 23 24 (21-32) mmol/L Anion Gap Pending 9.0 10.0 (3-11) BUN Pending 5 L 5 L (7-18) mg/dl Creatinine Pending 0.46 L 0.62 (0.6-1.4) mg/dl Est Cr Clr Drug Dosing Pending 216.0 160.3 ml/min Est GFR ( Amer) Pending > 150.0 141.8 Est GFR (Non-Af Amer) Pending 138.3 122.4 BUN/Creatinine Ratio Pending 10.0 8.8 L (10-20) Glucose Pending 85 89 (70-99) mg/dl POC Glucose (70-99) mg/dl Calcium Pending 8.4 L 8.5 (8.5-10.1) mg/dl 06/02/20 06/02/20 06/02/20 Range/Units 15:51 15:24 11:51 Sodium 116 L* 118 L* (136-145) mmol/L Potassium 3.4 L 3.8 (3.5-5.1) mmol/L Chloride 84 L 85 L (98-107) mmol/L Carbon Dioxide 23 23 (21-32) mmol/L Anion Gap 9.0 10.0 (3-11) BUN 5 L 4 L (7-18) mg/dl Creatinine 0.55 L 0.62 (0.6-1.4) mg/dl Est Cr Clr Drug Dosing 180.7 160.3 ml/min Est GFR ( Amer) 149.0 141.8 Est GFR (Non-Af Amer) 128.5 122.4 BUN/Creatinine Ratio 9.8 L 5.7 L (10-20) Glucose 92 87 (70-99) mg/dl POC Glucose 139 H (70-99) mg/dl Calcium 8.3 L 8.4 L (8.5-10.1) mg/dl 06/02/20 06/02/20 Range/Units 11:00 08:08 Sodium 121 L (136-145) mmol/L Potassium 3.7 (3.5-5.1) mmol/L Chloride 88 L (98-107) mmol/L Carbon Dioxide 21 (21-32) mmol/L Anion Gap 12.0 H (3-11) BUN 2 L (7-18) mg/dl Creatinine 0.61 (0.6-1.4) mg/dl Est Cr Clr Drug Dosing 162.9 ml/min Est GFR ( Amer) 142.8 Est GFR (Non-Af Amer) 123.2 BUN/Creatinine Ratio 4.0 L (10-20) Glucose 105 H (70-99) mg/dl POC Glucose 111 H (70-99) mg/dl Calcium 8.7 (8.5-10.1) mg/dl Medications Administered Current Inpatient Medications Enoxaparin Sodium (Enoxaparin Inj 40 Mg/0.4 Ml Syr) 40 mg SQ QAM PREET Stop: 07/02/20 10:14 Last Admin: 06/02/20 11:16 Dose: 40 mg Documented by: Desmopressin Acetate 1 mcg/ (Sodium Chloride) 50.25 mls @ 100 mls/hr IV Q8H PREET Stop: 07/01/20 20:29 Last Infusion: 06/03/20 05:41 Dose: Infused Documented by: Levothyroxine Sodium (Levothyroxine Sodium 25 Mcg Tablet) 25 mcg PO DAILYBB [facility] Stop: 07/02/20 07:44 Last Admin: 06/03/20 06:18 Dose: 25 mcg Documented by: Miscellaneous (Icu Protocol For Hyperglycemia) 1 ea N/A PRN PRN; Protocol PRN Reason: Hyperglycemia Protocol Stop: 06/03/20 19:50 Resident Activity Tracking Resident Involvement: Resident Care Provided Care Provided: Adult Hospital Medicine (Critical Care)
[2020-06-03] MEDS: LEVOTHYROXINE SODIUM 25 MCG TABLET PO SCH (06:18)
[2020-06-03] MEDS ORDERED: LEVOTHYROXINE SODIUM 25 MCG TABLET PO SCH (06:30)
--- NOTE | 2020-06-03 06:58 | Hospitalist Progress Note ---
Date of Service June 03, 2020 Assessment & Plan (1) Hyponatremia: 40 yo M PMHx hypothyroidism, asthma, mood disorder with depressive symptoms who was admitted for AMS and found to have severe hyponatremia, then admitted to ICU for close electrolyte monitoring. 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 - Na stable today at 118 this AM. - Initially presents for suspected seizure-like activity and altered mental status. - Patient's AMS has resolved, and CT Head this admission without findings suggestive of acute intracranial process. No seizure-like events noted this admission. - DDAVP started on 06/01 to mitigate rapid correction of hyponatremia; will stop today given Na not increasing over 24 hours. - Will further fluid restrict to 2000mL daily. - Continue to monitor q6h BMP; if correcting too rapidly will start D5W at slow rate and check more frequently. - If patient's Na not increasing despite stopping DDAVP will consider other causes of hyponatremia. History of Mood Disorder, Schizophrenia vs. Bipolar Disorder: - Will hold aripiprazole dosing at this time given possible neurologic effects of fluctuating sodium. - Haldol as needed for agitation. Hypothyroidism: - Continue home levothyroxine. Asthma: - Mild intermittent, no need for inhalers at this time. Code Status: FULL CODE FEN/GI: low sodium diet, fluid restriction 2000mL, readjust as needed pending BMP q6h DVT ppx: Lovenox 40mg daily Dispo: for downgrade from ICU to PCU/Telemetry today given stable condition (2) Hypothyroid: (3) Bipolar disorder: (4) Asthma: Admission and Anticipated Discharge Date Admission Date: June 01, 2020 Supervising Physician Co-Signing Physician Notes I personally examined the patient and verified all peralta points of history and exam, discussed case, and agree with decision making with Dr Boothe. continues to feel fine, eating ok vitals noted nad heent nc at mmm breathing unlabored no accessory muscles good effort. hyponatremia - very low, but fortunately mentally appears intact. safe for transfer out of icu. 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 will stop further ddavp - was initiated to slow correction as he initially jumped 5pts over about 3hrs, but was in context of nearly 1L saline, 100ml 3% saline, amp of sodium bicarb in ED. suspect some of the slowing now is that the DDAVP has led to retention of much of that fluid- as it wears off anticipate a more slow correction. if he corrects too fast (more than about 0.5/hr or more than a pace of about 12pts per 24hrs) then can try to slow correction w D5W - but i suspect this will not be the case. if correction too slow continues, then may need to consider concomitant SiADH and/or low solute state. otherwise as above Subjective Patient without acute events overnight. Feels well this AM, and per guards in home he appears to be at his baseline with regard to mental status. Denies complaints, is without CP, SOB, nausea or vomiting, abdominal pain, dizziness or headaches, confusion. Review of Systems Review of Systems: All systems reviewed & are unremarkable except as noted in Subjective Physical Exam Constitutional: WD/WN, vitals as above Eyes: PERRL, conjunctivae normal, anicteric sclerae ENMT: external ear and nose normal, oropharynx normal Neck: normal visual inspection Respiratory: normal respiratory effort, lungs clear to auscultation Cardiovascular: RRR, no murmur, no edema Gastrointestinal (Abdomen): normal bowel sounds, soft, nontender, no hepatosplenomegaly Skin: no rashes, warm and dry laceration over right eyebrow with steristrip, clean and dry Neurologic: AAOx3, no nystagmus, no speech abnormalities. Psychiatric: A+Ox3, euthymic affect Results & Data Results & Data ([facility]) Vital Signs (Past 12 Hours) Vital Signs Temp Pulse Resp BP Pulse Ox 06/03/20 06:12 68 15 137/88 100 06/03/20 05:12 67 13 119/104 H 99 06/03/20 04:12 37.0 C 70 16 122/78 98 06/03/20 02:11 60 12 103/72 98 06/03/20 01:11 61 14 103/81 98 06/03/20 00:12 36.8 C 62 17 143/91 H 99 06/02/20 23:23 74 15 143/104 H 98 06/02/20 22:12 65 16 124/90 99 06/02/20 21:11 71 16 120/86 98 06/02/20 21:00 70 15 99 06/02/20 20:12 37.0 C 68 16 120/91 98 06/02/20 19:12 74 15 123/87 99 Resident Activity Tracking Resident Involvement: Resident Care Provided Care Provided: Adult Hospital Medicine (1) Bipolar disorder Active/Remission status: remission status unspecified Qualified Code(s): F31.9 - Bipolar disorder, unspecified (2) Hypothyroid Hypothyroidism type: unspecified Qualified Code(s): E03.9 - Hypothyroidism, unspecified (3) Asthma Asthma complication type: uncomplicated Asthma persistence: unspecified Asth ma severity: unspecified severity Qualified Code(s): J45.909 - Unspecified asthma, uncomplicated
[2020-06-03 07:04] LABS: BUN Creatinine Ratio 6.1 (10-20); Calcium 8.6 mg/dl (8.5-10.1); Creatinine Clr Calc Pharmacy 174.3 ml/min; Est GFR (African American) 146.8; Est GFR (Non-African American) 126.7; Potassium 3.7 mmol/L (3.5-5.1)
[2020-06-03] MEDS: ENOXAPARIN INJ 40 MG/0.4 ML SYR SQ SCH (09:43)
--- NOTE | 2020-06-03 09:47 | Billing Data ---
Date of Service June 03, 2020 Coding Level of Care Code 05457 Subseq Hosp Care Lvl 3
[2020-06-03 12:41] LABS: BUN Creatinine Ratio 7.3 (10-20); Calcium 8.7 mg/dl (8.5-10.1); Creatinine Clr Calc Pharmacy 162.9 ml/min; Est GFR (African American) 142.8; Est GFR (Non-African American) 123.2; Potassium 3.6 mmol/L (3.5-5.1)
--- NOTE | 2020-06-03 15:26 | Billing Data ---
Date of Service June 03, 2020 Coding Level of Care Code 52601 Subseq Hosp Care Lvl 3
[2020-06-03] MEDS ORDERED: DESMOPRESSIN ACETATE 1 MCG in SODIUM CHLORIDE 0.9% 50 ML IV SCH (16:00)
[2020-06-03 19:20] LABS: BUN Creatinine Ratio 9.9 (10-20); Calcium 8.4 mg/dl (8.5-10.1); Est GFR (African American) 135.7; Est GFR (Non-African American) 117.1; Potassium 3.9 mmol/L (3.5-5.1)
--- NOTE | 2020-06-03 22:51 | Electrocardiogram Report ---
Test Reason : Blood Pressure : / mmHG Vent. Rate : 086 BPM Atrial Rate : 086 BPM P-R Int : 154 ms QRS Dur : 114 ms QT Int : 382 ms P-R-T Axes : 019 076 075 degrees QTc Int : 457 ms Poor data quality, interpretation may be adversely affected Normal sinus rhythm Normal ECG When compared with ECG of 23-MAY-2020 08:55, No significant change was found Confirmed by Bobby De La Torre ([id number]) on 06/03/2020 10:51:19 PM Referred By: [facility] Confirmed By:Bobby De La Torre
[2020-06-04 00:50] LABS: BUN Creatinine Ratio 12.1 (10-20); Calcium 9.1 mg/dl (8.5-10.1); Creatinine Clr Calc Pharmacy 141.9 ml/min; Est GFR (African American) 134.9; Est GFR (Non-African American) 116.4
[2020-06-04] MEDS: LEVOTHYROXINE SODIUM 25 MCG TABLET PO SCH (06:13)
[2020-06-04] MEDS: DEXTROSE 5% 1,000 ML IV SCH (06:55)
[2020-06-04 07:25] LABS: BUN Creatinine Ratio 9.9 (10-20); Calcium 9.5 mg/dl (8.5-10.1); Est GFR (African American) 129.7; Est GFR (Non-African American) 111.9; Potassium 4.4 mmol/L (3.5-5.1)
--- NOTE | 2020-06-04 07:31 | Hospitalist Progress Note ---
Date of Service June 04, 2020 Assessment & Plan (1) Hyponatremia: 40 yo M PMHx hypothyroidism, asthma, mood disorder with depressive symptoms who was admitted for AMS and found to have severe hyponatremia, then admitted to ICU for close electrolyte monitoring. 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 - Na with appropriate correction overnight from 117 -> 124, have added D5W at 50cc/hr this AM given do not want to overcorrect too quickly. - Initially presents for suspected seizure-like activity and altered mental status. - Patient's AMS has resolved, and CT Head this admission without findings suggestive of acute intracranial process. No seizure-like events noted this admission. - DDAVP started on 06/01 to mitigate rapid correction of hyponatremia; d/c'ed yesterday given slow correction. - Continue fluid restriction to 2000mL daily. - Continue to monitor q6h BMP; if correcting too rapidly will increase rate of D5W and check BMP more frequently. History of Mood Disorder, Schizophrenia vs. Bipolar Disorder: - Will hold aripiprazole dosing at this time given possible neurologic effects of fluctuating sodium. - Will likely resume tomorrow AM. - Haldol as needed for agitation. Hypothyroidism: - Continue home levothyroxine. Asthma: - Mild intermittent, no need for inhalers at this time. Code Status: FULL CODE FEN/GI: low sodium diet, fluid restriction 2000mL, readjust as needed pending BMP q6h DVT ppx: Lovenox 40mg daily Dispo: PCU/Telemetry for monitoring given electrolyte abnormalities (2) Hypothyroid: (3) Bipolar disorder: (4) Asthma: Admission and Anticipated Discharge Date Admission Date: June 01, 2020 Supervising Physician Co-Signing Physician Notes I personally examined the patient and verified all peralta points of history and exam, discussed case, and agree with decision making with Dr Boothe. continues to feel fine, eating ok, mentally himself - guards agree vitals noted nad heent nc at mmm breathing unlabored no accessory muscles good effort. no neuro deficits hyponatremia - very low, but fortunately mentally appears intact. safe for transfer out of icu. 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 improving at reasonable pace now - 11pts over last ~24hrs so not quite 0.5/hr. mentally intact. had to use D5w to slow rate of correction for a bit. continue to follow closely. given root cause, will ask that [facility] try to set up safeguards to help protect him from overdrinking once discharged. otherwise as above Subjective Patient without acute events overnight. Feels well this AM, and per guards in home he appears to be at his baseline with regard to mental status. Denies complaints, is without CP, SOB, nausea or vomiting, abdominal pain, dizziness or headaches, confusion. Review of Systems Review of Systems: All systems reviewed & are unremarkable except as noted in Subjective Physical Exam Constitutional: WD/WN, vitals as above Eyes: PERRL, conjunctivae normal, anicteric sclerae ENMT: external ear and nose normal, oropharynx normal Neck: normal visual inspection Respiratory: normal respiratory effort, lungs clear to auscultation Cardiovascular: RRR, no murmur, no edema Gastrointestinal (Abdomen): normal bowel sounds, soft, nontender, no he patosplenomegaly Skin: no rashes, warm and dry laceration over right eyebrow with steristrip, clean and dry Neurologic: AAOx3, no nystagmus, no speech abnormalities. Psychiatric: A+Ox3, euthymic affect Results & Data Results & Data ([facility]) Vital Signs (Past 12 Hours) Vital Signs Temp Pulse Pulse Resp BP Pulse Ox 06/04/20 07:03 36.9 C 74 17 91/73 L 100 06/04/20 03:17 37.0 C 75 18 106/60 97 06/04/20 00:00 73 06/03/20 23:07 37.1 C 71 22 103/64 97 Resident Activity Tracking Resident Involvement: Resident Care Provided Care Provided: Adult Hospital Medicine (1) Bipolar disorder Active/Remission status: remission status unspecified Qualified Code(s): F31.9 - Bipolar disorder, unspecified (2) Hypothyroid Hypothyroidism type: unspecified Qualified Code(s): E03.9 - Hypothyroidism, unspecified (3) Asthma Asthma complication type: uncomplicated Asthma persistence: unspecified Asthma severity: unspecified severity Qualified Code(s): J45.909 - Unspecified asthma, uncomplicated
[2020-06-04] MEDS: POLYETHYLENE (MIRALAX) 17 GM PACK PO SCH (08:20)
[2020-06-04] MEDS: ENOXAPARIN INJ 40 MG/0.4 ML SYR SQ SCH (08:20)
[2020-06-04 12:47] LABS: BUN Creatinine Ratio 9.4 (10-20); Calcium 9.8 mg/dl (8.5-10.1); Creatinine Clr Calc Pharmacy 119.7 ml/min; Est GFR (African American) 125.8; Est GFR (Non-African American) 108.5; Potassium 4.5 mmol/L (3.5-5.1)
--- NOTE | 2020-06-04 16:26 | Billing Data ---
Date of Service June 04, 2020 Coding Level of Care Code 92920 Subseq Hosp Care Lvl 3
[2020-06-04 19:09] LABS: BUN Creatinine Ratio 10.3 (10-20); Calcium 9.2 mg/dl (8.5-10.1); Creatinine Clr Calc Pharmacy 102.4 ml/min; Est GFR (African American) 111.1; Est GFR (Non-African American) 95.9; Potassium 4.7 mmol/L (3.5-5.1)
[2020-06-04] MEDS ORDERED: ACETAMINOPHEN 325 MG TAB PO PRN (20:30)
[2020-06-04] MEDS ORDERED: OLANZapine 5 MG TABLET PO SCH (21:00)
[2020-06-05] MEDS: DEXTROSE 5% 1,000 ML IV SCH (02:13)
[2020-06-05 07:09] LABS: Basophils # (auto) 0.01 K/uL (0-0.2); Basophils % (auto) 0.2 %; Eosinophils # (auto) 0.01 K/uL (0-0.5); Eosinophils % (auto) 0.2 %; Hematocrit (blood only) 41.7 % (42-52); Hemoglobin 14.5 g/dL (14.0-18.0); Lymphocytes # (auto) 0.98 K/uL (1.2-3.4); Lymphocytes % (auto) 16.8 %; Mean Corpuscular Hemoglobin 30.9 pg (25-34); Mean Corpuscular Hgb Conc 34.8 g/dL (32-36); Mean Corpuscular Volume 88.9 fL (80-100); Mean Platelet Volume 9.4 fL (7.4-10.4); Monocytes # (auto) 0.49 K/uL (0.11-0.59); Monocytes % (auto) 8.4 %; Neutrophils # (auto) 4.35 K/uL (1.4-6.5); Neutrophils % (auto) 74.4 %; Platelet Count 319 K/uL (130-400); RDW Standard Deviation 41.9 fL (36.4-46.3); Red Blood Count 4.69 M/uL (4.7-6.1); White Blood Count 5.84 K/uL (4.8-10.8)
[2020-06-05 07:39] LABS: Calcium 9.5 mg/dl (8.5-10.1); Creatinine Clr Calc Pharmacy 118.3 ml/min; Est GFR (African American) 125.2; Potassium 3.8 mmol/L (3.5-5.1)
[2020-06-05] MEDS: POLYETHYLENE (MIRALAX) 17 GM PACK PO SCH (08:05)
[2020-06-05] MEDS: LEVOTHYROXINE SODIUM 25 MCG TABLET PO SCH (08:16)
[2020-06-05] MEDS: ENOXAPARIN INJ 40 MG/0.4 ML SYR SQ SCH (08:16)
--- NOTE | 2020-06-05 12:56 | Discharge Summary ---
Date of Service June 05, 2020 Admission HPI Per Admitting Provider Be Tinoco is a 40-year-old male who presents to the ER after being found on the floor with suspected seizure-like activity. Initially suspected to have a syncopal event but was unwitnessed. No prior known seizures. Unknown baseline at this time. However per ER nurse this is similar to his recent presentation on May 22. On that occasion he was diagnosed with acute psychosis, sid, right middle finger cellulitis and rhabdomyolysis. In the ER the patient was having witnessed apnea episodes which responded to sternal rubbing. He was placed on BiPAP for this reason. He is nonverbal with myself and noncompliant with examination but occasionally following simple commands. Does not appear agitated. No seizure-like activity reported in the emergency room. Admission Exam Per Admitting Provider Constitutional: well developed; + not well nourished and no acute distress Eyes: + anicteric sclerae; normal pupil size (equal, unable to test if reactive to light as patient noncompliant with exam) Neck: trachea midline Respiratory: normal respiratory effort, lungs clear to auscultation Cardiovascular: Rate/Rhythm: regular rate and regular rhythm Heart Sounds: no murmur Extremities: normal capillary refill; no calf tenderness and no pedal edema Gastrointestinal (Abdomen): Inspection/Auscultation: abdomen normal to inspection and normal bowel sounds; abdomen not distended Percussion/Palpation: abdomen soft; abdomen nontender, no guarding and abdomen not rigid Musculoskeletal: Moving all 4 extremities per ER nurse Neurologic: moves all extremities, awake and + confused Cranial Nerves: normal facial strength (Grossly appears normal) Not following commands therefore unable to complete neurological exam Psychiatric: Orientation: alert; + not oriented x 3 (No answering) Insight: + severely impaired insight Genitourinary: no CVA tenderness Principal Diagnosis Hyponatremia Discharge Exam Constitutional well developed and well nourished; no acute distress Eyes PERRL, conjunctivae normal, anicteric sclerae Respiratory normal respiratory effort, lungs clear to auscultation Cardiovascular RRR, no murmur, no edema Psychiatric A+Ox3, euthymic affect Discharge Data Allergies Allergy/AdvReac Type Severity Reaction Status Date / Time amoxicillin Allergy Mild Unknown Unverified 05/22/20 19:31 Penicillins Allergy Unknown UNKNOWN Verified 05/22/20 19:31 Consultations 06/01/20 18:41 ED Decision to Admit Stat 06/01/20 19:51 Consult Gas System Operator Routine Ordered Studies 06/01/20 16:25 CT head/brain wo con Stat 06/01/20 16:32 CT cervical spine wo con Stat Hospital Course (1) Hyponatremia: 40 yo M PMHx hypothyroidism, asthma, mood disorder with depressive symptoms who was admitted for AMS and found to have severe hyponatremia, then admitted to ICU for close electrolyte monitoring. Severe hyponatremia: - Initially presents for suspected seizure-like activity and altered mental status. - Patient's AMS has resolved, and CT Head this admission without findings suggestive of acute intracranial process. No seizure-like events noted this admission. - Likely 2/2 psychogenic polydipsia; two days ago witnessed drinking a significant amount of water in a short time. - Na with appropriate correction from 117 -> 124 -> 133 by discharge. - D5W was added on to prevent overcorrecting too quickly. - DDAVP started on 06/01 to mitigate rapid correction of hyponatremia; d/c'ed given slow correction. - Recommend continued fluid restriction to 2000mL daily. - Recommend BMP check in 1 week after discharge. History of Mood Disorder, Schizophrenia vs. Bipolar Disorder: - Held aripiprazole while inpatient at this time given possible neurologic effects of fluctuating sodium. - Resumed aripiprazole by discharge. - Haldol as needed for agitation. Hypothyroidism: - Continued home levothyroxine. Asthma: - Mild intermittent, no need for inhalers at this time. 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 Severe hyponatremia: - Likely 2/2 psychogenic polydipsia; was witnessed drinking a significant amount of water in a short time. - Na with appropriate correction from 117 -> 124 -> 133 by discharge. D5W was added on initially to slow over-correction. - Patient's AMS has resolved, and CT Head this admission without findings suggestive of acute intracranial process. No seizure-like events noted this admission. - DDAVP started on 06/01 to mitigate rapid correction of hyponatremia; d/c'ed gi elvia slow correction. - Continue fluid restriction to 2000mL daily upon return to correctional facility. - Continue to monitor patients fluid intake to prevent reoccurrence. History of Mood Disorder, Schizophrenia vs. Bipolar Disorder: - Continue home medications Hypothyroidism: - Continue home levothyroxine. Asthma: - Mild intermittent, no need for inhalers at this time. Pending Studies at Discharge: No Stand-Alone Forms: Initiative Gaming, Smoking Cessation Skilled Items Patient informed of condition?: Yes Discharge Level of Care: Other Communicable Disease: No Discharge Prognosis: Stable Lines: None Urinary Catheter: No Medications and DC Order Prescriptions: Continued olanzapine 5 mg Tablet 5 mg PO HS RF: 0 levothyroxine 25 mcg Tablet 25 mcg PO DAILY RF: 0 diphenhydramine HCl 50 mg Capsule 100 mg PO HS RF: 0 olanzapine 5 mg Tablet 5 mg PO Q4H PRN (Reason: agitation) Qty: 30 RF: 0 Desenex 2 % Powder 1 applic EXT BID Qty: 43 RF: 0 mupirocin 2 % Ointment 1 applic EXT BID Qty: 15 RF: 0 clindamycin HCl 300 mg capsule 600 mg PO TID 9 Days Qty: 54 RF: 0 Discharge Orders: Discharge Order (Routine); Ordered 06/05/20 Ordered By: Gavin Rey Admission Data Admit Date/Time: 06/01/20 18:40 Attending Provider: Romeo Main Admit Provider: Shiraz Smith Primary Care Provider: Jasmyne FREEMAN Other Providers: Shiraz Smith ; Aiden Webber Other Interventions: Discharge Summary Assessment (RN) Last Done: 06/05/20 13:01 Supervising Physician Co-Signing Physician Notes Patient seen and examined with PGY-2 Dr. Rey. Agree with history, discharge exam findings, assessment/plan of care and hospital course as documented. In brief, Mr. Tinoco is a 40 year old with history of hypothyroidism, asthma, mood disorder and chronic hyponatremia admitted with seizure-like activity and altered mental status, found to have severe hyponatremia (serum Na 114, serum osm 231, urine Na 39 on admission). He is feeling well today. Denies headaches. Wants to get a haircut. VS reviewed. Nursing notes reviewed. Well appearing. Odd affect. Heart with regular rate and rhythm. S1/S2. No murmur. Lungs are clear to auscultation. Neurologic--grossly in tact. 1. severe acute on chronic hyponatremia. Baseline Na between 126 to 138. Psychogenic polydipsia after drinking significant amounts of water prior to admission. Na 114-->128. Today Na 133. Fluid restriction to 2L. Will need recheck of BMP in 1 week. Other chronic issues were stable and home medications were continued. I personally spent 25 minutes discharge planning for this patient. Resident Activity Tracking Resident Involvement: Resident Care Provided Care Provided: Adult Hospital Medicine
== END 2020-06-05 16:01 | DRG 641 ==
LOC: ED 16:23 → SUATTDRO 18:40 → 1E 18:40 → 2E 06-03 15:03